=== PATIENT | male | born 1960 ===

== ENCOUNTER 2020-06-22 11:56 | Outpatient (REF) | payer MEDICARE, MEDICAID, SELFPAY | END 2020-06-22 11:57 | disposition home or self-care (01) | LOC: HO.LNP 11:56 | PROVIDERS: Visit Provider Hospitalist | DX: M79.10 Myalgia, unspecified site (principal); Z20.822 Contact with and (suspected) exposure to COVID-19 | CPT/HCPCS: U0003; U0005 ==

== ENCOUNTER 2020-12-11 06:44 | Outpatient (REF) | payer MEDICARE, MEDICAID, SELFPAY ==
[2020-12-11 07:33] LABS: Hematocrit 46.3 % (42-52); Hemoglobin 15.9 g/dl (14.0-18.0); Mean Corpuscular HGB Conc 34.3 g/dl (31.0-36.0); Mean Corpuscular Hemoglobin 30.4 pg (27.0-33.0); Mean Corpuscular Volume 88.5 fL (80-98); Platelet Count 217 X10*3/uL (160-400); Red Blood Count 5.23 X10*6/uL (4.60-5.80); Red Cell Distribution Width 12.4 % (11.0-16.0); White Blood Count 6.5 X10*3/uL (4.8-10.8)
[2020-12-11 07:34] LABS: Glucose Urine UA NEG (NEG); Leukocyte Esterase Urine NEG (NEG); Nitrite Urine NEG (NEG); PH 6.5 (5.0-8.0); Specific Gravity - Urine 1.015 (1.005-1.025); Urine Blood NEG (NEG); Urine Ketones NEG (NEG); Urine Protein NEG (NEG-TRACE)
[2020-12-11 07:35] LABS: Appearance Urine CLEAR; Color Urine YELLOW
[2020-12-11 07:50] LABS: Alanine Aminotransferase 18 U/L (0-40); Albumin Level 4.5 g/dL (3.5-5.0); Alkaline Phosphatase 89 U/L (39-117); Anion Gap 12 (12-20); Aspartate Amino Transferase 19 U/L (5-37); Bilirubin Direct 0.3 mg/dL (0.0-0.5); Bilirubin Total 0.7 mg/dL (0.0-1.0); Blood Urea Nitrogen 14 mg/dL (9-16); Calcium 9.8 mg/dL (8.4-10.2); Carbon Dioxide 25 mmol/L (22-29); Chloride 108 mmol/L (96-108); Cholesterol 188 mg/dL; Estimated Glomerular Filt Rate > 60; Glucose Random 104 mg/dL (60-115); HDL Cholesterol 68 mg/dL; LDL Cholesterol Calculated 105 mg/dl; Potassium 4.3 mmol/L (3.3-5.1); Sodium 141 mmol/L (135-145); Total Protein 7.5 g/dL (6.5-8.0); Triglycerides 75 mg/dL
[2020-12-11 08:10] LABS: Prostate Specific Antigen Scr 1.81 ng/mL (<0.05-4.0)
== END 2020-12-11 06:45 | disposition home or self-care (01) ==
LOC: HO.LAB 06:44
PROVIDERS: PCP Internal Medicine; Visit Provider Internal Medicine
DX: Z12.5 Encounter for screening for malignant neoplasm of prostate (principal); N40.0 Benign prostatic hyperplasia without lower urinary tract symptoms
CPT/HCPCS: 36415; 80048; 80061; 80076; 81003; 84153; 84443; 85027

== ENCOUNTER → 2021-10-02 14:38 | Outpatient (BNVA) | payer MEDICARE, MEDICAID, SELFPAY | PROVIDERS: PCP Internal Medicine; Visit Provider Internal Medicine | DX: G47.33 Obstructive sleep apnea (adult) (pediatric) (principal); F41.1 Generalized anxiety disorder; Z79.899 Other long term (current) drug therapy; Z91.19 Patient's noncompliance with other medical treatment and regimen | CPT/HCPCS: 99212 ==

== ENCOUNTER 2021-10-15 07:40 | Outpatient (REF) | payer MEDICARE, MEDICAID, SELFPAY ==
[2021-10-15 08:20] LABS: Hematocrit 40.5 % (42.0-52.0); Hemoglobin 13.9 g/dl (14.0-18.0); Mean Corpuscular HGB Conc 34.3 g/dl (31.0-36.0); Mean Corpuscular Hemoglobin 30.4 pg (27.0-33.0); Mean Corpuscular Volume 88.6 fL (80.0-98.0); Mean Platelet Volume 9.9 fL (9.4-12.4); Platelet Count 202 X10*3/uL (160-400); Red Blood Count 4.57 X10*6/uL (4.60-5.80); Red Cell Distribution Width 12.5 % (11.0-16.0); White Blood Count 5.8 X10*3/uL (4.8-10.8)
[2021-10-15 08:32] LABS: Appearance Urine CLEAR; Color Urine YELLOW; Glucose Urine UA NEG (NEG); Leukocyte Esterase Urine NEG (NEG); Nitrite Urine NEG (NEG); Urine Blood NEG (NEG); Urine Ketones NEG (NEG); Urine Protein NEG (NEG-TRACE)
[2021-10-15 08:47] LABS: Alanine Aminotransferase 19 U/L (0-40); Albumin Level 4.3 g/dL (3.5-5.0); Alkaline Phosphatase 86 U/L (39-117); Anion Gap 13 (12-20); Aspartate Amino Transferase 19 U/L (5-37); Bilirubin Direct 0.3 mg/dL (0.0-0.5); Bilirubin Total 0.9 mg/dL (0.0-1.0); Blood Urea Nitrogen 16 mg/dL (9-16); Carbon Dioxide 25 mmol/L (22-29); Chloride 106 mmol/L (96-108); Cholesterol 194 mg/dL; Estimated Glomerular Filt Rate > 60; Glucose Random 101 mg/dL (60-115); HDL Cholesterol 57 mg/dL; LDL Cholesterol Calculated 127 mg/dl; Potassium 4.2 mmol/L (3.3-5.1); Sodium 140 mmol/L (135-145); Total Protein 7.1 g/dL (6.5-8.0); Triglycerides 51 mg/dL
[2021-10-15 08:49] LABS: Thyroid Stimulating Hormone 0.63 uIU/mL (0.32-4.0)
== END 2021-10-15 07:41 | disposition home or self-care (01) ==
LOC: HO.LAB 07:40
PROVIDERS: PCP Internal Medicine; Visit Provider Internal Medicine
DX: E78.00 Pure hypercholesterolemia, unspecified (principal); I10 Essential (primary) hypertension
CPT/HCPCS: 36415; 80048; 80061; 80076; 81003; 84443; 85027

== ENCOUNTER → 2021-12-04 15:22 | Outpatient (BNVA) | payer MEDICARE, MEDICAID, SELFPAY | PROVIDERS: PCP Internal Medicine; Visit Provider Internal Medicine | DX: G47.33 Obstructive sleep apnea (adult) (pediatric) (principal); J30.9 Allergic rhinitis, unspecified; Z99.89 Dependence on other enabling machines and devices | CPT/HCPCS: 99212 ==

== ENCOUNTER 2022-03-10 10:19 | Emergency (ER) | payer MEDICARE, MEDICAID, SELFPAY ==
[2022-03-10 10:23] VITALS: BP 177/93; PULSE 110; RESP 19; TEMP 36.6; O2SAT 93; BMI 27.3
--- NOTE | 2022-03-10 10:53 | PC.NURSE ---
bladder distended with 783ml via bladder scanner
[2022-03-10] MEDS: Lidocaine HCl 2 % Urojet 10 ML JEL.PF.APP TOPICAL (11:12)
--- NOTE | 2022-03-10 11:13 | PC.NURSE ---
18 norwood placed , pt tolerated well and draining clear urine
[2022-03-10 11:43] LABS: MANUAL DIFF FLAG NO
[2022-03-10 11:44] LABS: Basophils Percent Auto 0.6 % (0-2); Eosinophils Percent Auto 0.3 % (0-4); Hematocrit 42.5 % (42.0-52.0); Hemoglobin 14.4 g/dl (14.0-18.0); Imm Gran Abs Auto 0.03 X10*3/uL (0.00-0.03); Imm Gran Pct Auto 0.4 % (0.0-0.4); Lymphocytes Absolute Auto 1.1 X10*3/uL (1.2-4.9); Lymphocytes Percent Auto 15.6 % (20-40); Mean Corpuscular HGB Conc 33.9 g/dl (31.0-36.0); Mean Corpuscular Volume 88.5 fL (80.0-98.0); Mean Platelet Volume 9.2 fL (9.4-12.4); Monocytes Absolute Auto 0.7 X10*3/uL (0.1-1.2); Monocytes Percent Auto 9.4 % (2-11); Neutrophils Absolute Auto 5.1 x10*3/uL (2.0-8.3); Neutrophils Percent Auto 73.7 % (45-73); Platelet Count 207 X10*3/uL (160-400); Red Cell Distribution Width 12.7 % (11.0-16.0); White Blood Count 6.9 X10*3/uL (4.8-10.8)
[2022-03-10 11:55] LABS: Appearance Urine Clear; Color Urine Yellow; Glucose Urine UA Negative (Negative); Leukocyte Esterase Urine Negative (Negative); Nitrite Urine Negative (Negative); Specific Gravity - Urine 1.015 (1.005-1.025); UMIC TRIGGER UACC YES; Urine Blood Moderate (2+) (Negative); Urine Ketones Negative (Negative); Urine Protein Negative (Neg-Trace)
[2022-03-10 12:01] LABS: Bacteria Urine None Seen (None Seen); Hyaline Casts Urine 0-2 /LPF (0-2); RBC Urine >20 /HPF (0-2); Squamous Epithelial Cell Urine 0-2 /HPF (0-2); WBC Urine 0-5 /HPF (0-5)
[2022-03-10 12:03] LABS: Alanine Aminotransferase 17 U/L (0-40); Albumin Level 4.4 g/dL (3.5-5.0); Alkaline Phosphatase 82 U/L (39-117); Anion Gap 13 (12-20); Aspartate Amino Transferase 19 U/L (5-37); Bilirubin Total 0.5 mg/dL (0.0-1.0); Blood Urea Nitrogen 13 mg/dL (9-16); Calcium 9.5 mg/dL (8.4-10.2); Carbon Dioxide 24 mmol/L (22-29); Chloride 107 mmol/L (96-108); Creatinine Clr Calc Pharmacy 84.4; Estimated Glomerular Filt Rate > 60; Glucose Random 112 mg/dL (60-115); Potassium 4.2 mmol/L (3.3-5.1); Sodium 140 mmol/L (135-145); Total Protein 7.2 g/dL (6.5-8.0)
--- NOTE | 2022-03-10 12:11 | ED.MALEGU ---
HPI - Male Genitourinary General Chief complaint: Urogenital-Male Stated complaint: Trouble urinating Time Seen by Provider: 03/10/22 11:11 Source: patient Mode of arrival: ambulatory Limitations: no limitations History of Present Illness HPI Narrative: 62 yod male with pmh oF BPH, CAD, SHAHRIAR, osteoarthrits, presents to the ED for urinary retention. patient states couple of days ago he had some dribbling in his Urine and than since last night he was not able to urinate. patient states history of BPh, but has never had Urinary retention. patient deneis any flank pain, nausea and vomitting. Patient states due to inability to urinate he had suprapubic pain. patient denies any history of STD Related Data Previous Rx's Medication Instructions Recorded trazodone 100 mg tablet 100 mg PO BEDTIME PRN for insomnia 12/08/20 #90 tabs citalopram 20 mg tablet 20 mg PO DAILY #90 tabs 11/04/21 diclofenac sodium 50 mg 50 mg PO BID #60 tabs 11/04/21 tablet,delayed release enalapril maleate 10 mg tablet 10 mg PO DAILY #90 tabs 11/04/21 tamsulosin 0.4 mg capsule 0.4 mg PO BEDTIME #90 caps 11/04/21 rosuvastatin 10 mg tablet 10 mg PO DAILY #90 tabs 12/15/21 fluticasone propionate 50 1 spray intranasal DAILY #16 mL 12/26/21 mcg/actuation nasal spray,suspension Allergies Allergy/AdvReac Type Severity Reaction Status Date / Time No Known Allergies Allergy Verified 12/26/21 09:22 Review of Systems Review of Systems: Urinary retention Yes all other systems are reviewed and are negative [facility] Past Medical History Medical History Allergic rhinitis Coronary artery disease due to lipid rich plaque Essential hypertension Generalized anxiety disorder Hypercholesterolemia SHAHRIAR on CPAP Osteoarthritis of right hip Surgical History History of hemorrhoidectomy History of repair of rotator cuff Family History Family History Father No problems noted. Mother No problems noted. Sister No problems noted. Sister No problems noted. Social History Social History Housing: Apartment Alcohol intake: never Patient Tobacco Use Status: Former Tobacco user (30 years ago) e-Cigarette/Vaping Use: Never Used Second Hand Smoke Exposure: No Advance Directives: No Advance Directives Information Provided: No service: No Current occupational status: disabled Cognitive needs: No Hearing needs: No Vision needs: Yes (Glasses) Physical Exam Vital Signs: Vital Signs: Last Vital Signs Temp 98 F 03/10/22 10:23 Pulse 110 H 03/10/22 10:23 Resp 19 03/10/22 10:23 BP 177/93 H 03/10/22 10:23 Pulse Ox 93 03/10/22 10:23 O2 Del Method 03/10/22 10:23 BMI result Body Mass Index 27.3 Const: General: acute distress (due to urinary retention) Orientation/consciousness: oriented to place, oriented to time and patient oriented x3 HEENT: Head: Yes normal to inspection, Yes No palpable skull fracture present, Yes normocephalic, Yes atraumatic and No abrasion Eyes: General: appearance normal, both eyes and all related structures Neck: Neck: Yes normal visual inspection, Yes full ROM, Yes no lymphadenopathy, Yes no meningeal signs, Yes trachea midline, Yes supple, No anterior neck swelling and No tender Chest: Chest palpation & inspection: normal inspection of the chest and normal palpation of entire chest wall Resp: Effort & Inspection: normal respiratory effort and able to speak in complete sentences Auscultation: clear to auscultation bilaterally Cardio: Jugular venous distension: no JVD Heart sounds: S1 normal heart sound present and S2 normal heart sound present GI: Inspection: Yes normal to inspection and No abdominal wall ecchymosis Palpation (GI): Soft to palpation, not firm, Tenderness to palpation present (GI) suprapubicly, no guarding and not rigid : General: No CVA tenderness and Yes no CVA tenderness Back/Spine/Pelvis: Back: no CVA tenderness, No CVA tenderness and No back tenderness Skin: General skin exam: no rashes or lesions noted and elasticity normal Neuro: General: oriented to place, oriented to time, patient oriented x3, gait normal, tone normal and no meningeal signs Cranial nerves: Yes CN's II-XII intact bilaterally Extrem: General: Yes normal to inspection and Yes full ROM Psych: Appearance: grossly normal, well kempt and not disheveled Course Course Course Narrative: Bladder scan shows [address] Wagner catheter with Uro jet. Patient drained 2000 mL of urine. Will send urine sample and labs to make sure there is no kidney function injury or infection Reevaluation(s) Reevaluation #1: Labs are normal. UA shows blood which is expected from trying to place Wagner. Patient denies any flank pain or nausea vomiting or abdominal pain. Not Suspecting kidney stones. Patient feels better after Wagner placement. Urine is clear. Vital signs normalized on portable monitor. patient no longer tachy or hypertensive. patient feels relieved. 02 sat before dsicahrged is 95. Repeat Bp 150 systlolic and HR 79. MDM - Male Genitourinary MDM Narrative Medical decision making narrative: Urinary retention Lab Data Result diagrams: 03/10/22 11:37 03/10/22 11:37 Labs: Lab Results 03/10/22 03/10/22 03/10/22 Range/Units 11:34 11:37 11:37 WBC 6.9 (4.8-10.8) X10*3/uL RBC 4.80 (4.60-5.80) X10*6/uL Hgb 14.4 (14.0-18.0) g/dl Hct 42.5 (42.0-52.0) % MCV 88.5 (80.0-98.0) fL MCH 30.0 (27.0-33.0) pg MCHC 33.9 (31.0-36.0) g/dl RDW 12.7 (11.0-16.0) % Plt Count 207 (160-400) X10*3/uL MPV 9.2 L (9.4-12.4) fL Immature Gran % (Auto) 0.4 (0.0-0.4) % Neut % (Auto) 73.7 H (45-73) % Lymph % (Auto) 15.6 L (20-40) % [place] % (Auto) 9.4 (2-11) % Eos % (Auto) 0.3 (0-4) % Baso % (Auto) 0.6 (0-2) % Lymph # (Auto) 1.1 L (1.2-4.9) X10*3/uL [place] # (Auto) 0.7 (0.1-1.2) X10*3/uL Eos # (Auto) 0.0 (0.0-0.4) X10*3/uL Baso # (Auto) 0.0 (0.0-0.2) X10*3/uL Abs Immat Gran (auto) 0.03 (0.00-0.03) X10*3/uL Absolute Neuts (auto) 5.1 (2.0-8.3) x10*3/uL Absolute Nucleated RBC 0.000 (0.0-0.012) X10*3/uL Nucleated RBC % (auto) 0.0 (0.0-0.2) /100WBC Sodium 140 (135-145) mmol/L Potassium 4.2 (3.3-5.1) mmol/L Chloride 107 (96-108) mmol/L Carbon Dioxide 24 (22-29) mmol/L Anion Gap 13 (12-20) BUN 13 (9-16) mg/dL Creatinine 0.90 (0.5-1.4) mg/dL Estim Creat Clear Calc 84.4 Estimated GFR > 60 Random Glucose 112 (60-115) mg/dL Calcium 9.5 (8.4-10.2) mg/dL Total Bilirubin 0.5 (0.0-1.0) mg/dL AST 19 (5-37) U/L ALT 17 (0-40) U/L Alkaline Phosphatase 82 (39-117) U/L Total Protein 7.2 (6.5-8.0) g/dL Albumin 4.4 (3.5-5.0) g/dL Urine Color Yellow Urine Appearance Clear Urine pH 6.0 (5.0-9.0) Ur Specific [place] 1.015 (1.005-1.025) Urine Protein Negative (Neg-Trace) mg/dL Urine Glucose (UA) Negative (Negative) mg/dL Urine Ketones Negative (Negative) mg/dL Urine Blood Moderate (2+) H (Negative) Urine Nitrite Negative (Negative) Ur Leukocyte Esterase Negative (Negative) Urine RBC >20 H (0-2) /HPF Urine WBC 0-5 (0-5) /HPF Ur Squamous Epith Cells 0-2 (0-2) /HPF Urine Bacteria None Seen (None Seen) Hyaline Casts 0-2 (0-2) /LPF Discharge Plan Discharge Clinical Impression: Acute urinary retention Patient Disposition: Home, Self-Care Instructions: Urinary Retention in Men (ED), Wagner Catheter Placement and Care (ED) Additional Instructions: The Wagner will have to stay in place. Your labs came back normal. You will need follow-up with your urologist. Return to the ED for bloody urine, abdominal pain, nausea, vomiting, flank pain, fever, chills, or any other concerning symptoms. Prescriptions: No Action trazodone 100 mg tablet 100 mg PO BEDTIME PRN (Reason: for insomnia) Qty: 90 1RF citalopram 20 mg tablet 20 mg PO DAILY Qty: 90 1RF diclofenac sodium 50 mg tablet,delayed release (DR/EC) 50 mg PO BID Qty: 60 0RF enalapril maleate 10 mg tablet 10 mg PO DAILY Qty: 90 1RF tamsulosin 0.4 mg capsule 0.4 mg PO BEDTIME Qty: 90 1RF rosuvastatin 10 mg tablet 10 mg PO DAILY Qty: 90 0RF fluticasone propionate 50 mcg/actuation spray,suspension 1 spray intranasal DAILY Qty: 16 1RF Referrals: [facility] [Provider Group] (Urinary retention) Stand Alone Forms: Work/School Release Interventions: ED Discharge Assessment Last Done: 03/10/22 13:42 Print Language: Greek
== END 2022-03-10 13:44 | disposition home or self-care (01) ==
PROVIDERS: Physician Assistant; Emergency Provider Student in an Organized Health Care Education/Training Program; PCP Internal Medicine
DX: R33.9 Retention of urine, unspecified (principal); G47.33 Obstructive sleep apnea (adult) (pediatric); Z79.899 Other long term (current) drug therapy
CPT/HCPCS: 36415; 51798; 80053; 81001; 85025; 99284

== ENCOUNTER → 2022-06-24 15:09 | Outpatient (BNVA) | payer MEDICARE, MEDICAID, SELFPAY | PROVIDERS: PCP Internal Medicine; Visit Provider Internal Medicine | DX: G47.33 Obstructive sleep apnea (adult) (pediatric) (principal); J30.9 Allergic rhinitis, unspecified; Z99.89 Dependence on other enabling machines and devices | CPT/HCPCS: 99212 ==

== ENCOUNTER → 2022-10-29 14:47 | Outpatient (BNVA) | payer OTHER, MEDICARE, SELFPAY | PROVIDERS: PCP Internal Medicine; Visit Provider Internal Medicine ==

== ENCOUNTER 2023-02-05 14:04 | Outpatient (AMB) | payer MEDICARE, MEDICAID, SELFPAY ==
--- NOTE | 2023-02-05 14:08 | MHC.PC.OV ---
Vital Signs 02/05/23 14:10 Height 5 ft 8 in Weight 192 lb 2 oz BMI 29.2 BP 132/84 Blood Pressure Location Lt brachial Position Sitting Pulse 82 Pulse Source Pulse Oximeter Pulse Oximetry (%) 95 Oxygen Delivery Method Room Air Intake Visit Reasons: SOB for 1 month Intake Note: Patient is here today for SOB and dizziness for the past 1 month Auriculotherapist Required: No Linux System Administrator: Not Required per policy Accompanied by: Self / Same As Patient Allergies No Known Allergies Allergy (Verified 02/05/23 14:09) Tobacco use date assessed: 02/05/23 Dental Screening Dental Screen Date: 02/05/23 Did you have a dental visit in the last 12 months?: No Did you have a dental problem in the last 6 months where you did not have access to dental care?: No Was dental information given to patient?: No HPI SOB for 1 month HPI Details 63-year-old male presents to the office for a sick visit. Patient is reporting exertional shortness of breath for the past month. No wheezing. Symptoms are worse when he climbs stairs. He is able to walk 1 mi with no difficulty. No nausea or vomiting. [facility]LY [facility] Medical History Allergic rhinitis SHAHRIAR on CPAP Generalized anxiety disorder Hypercholesterolemia Essential hypertension Osteoarthritis of right hip Coronary artery disease due to lipid rich plaque Surgical History History of prostate surgery History of repair of rotator cuff History of hemorrhoidectomy Family History Father No problems noted. Mother No problems noted. Sister No problems noted. Sister No problems noted. Social History Housing: Apartment Alcohol intake: never Patient Tobacco Use Status: Former Tobacco user (30 years ago) e-Cigarette/Vaping Use: Never Used Second Hand Smoke Exposure: No service: No Current occupational status: disabled Cognitive needs: No Hearing needs: No Vision needs: Yes (Glasses) Questionnaire Thrive Questionnaire Date Thrive assessed: 06/17/22 SEBASTIAN-7 AMB Questionnaire SEBASTIAN-7 Date SEBASTIAN - 7 assessed: 02/07/23 Source: Developed by Drs. Antonio Ott, Sravanthi Kowalski, Jeramy Holland and colleagues, with an educational keara from [employer]. Physical exam (Primary Care) Vital Signs: Last Vital Signs Pulse 82 02/05/23 14:10 BP 132/84 02/05/23 14:10 Pulse Ox 95 02/05/23 14:10 Oxygen Delivery Method Room Air 02/05/23 14:10 BMI result Body Mass Index 29.2 Tobacco/Smoking Status: Tobacco use Status Tobacco use date assessed 02/05/23 02/05/23 14:19 Patient Tobacco Use Status Former Tobacco user (30 02/05/23 14:19 years ago) e-Cigarette/Vaping Use Never Used 02/05/23 14:19 Thrive Assessment: Date of Thrive Assessment Date Thrive assessed 06/17/22 02/05/23 14:19 Const General: cooperative and healthy appearing Nutritional Appearance: well nourished Orientation/consciousness: patient oriented x3 Limitations: no limitations HENMT Head: Yes normal to inspection Eyes General: appearance normal, both eyes and all related structures Neck Neck: Yes normal visual inspection Chest Chest palpation & inspection: normal palpation of entire chest wall Resp Effort & Inspection: normal respiratory effort Neuro General: patient oriented x3 Office Procedures EKG Details: Normal sinus rhythm. [id number], Complete Assessment and Plan Assessment & Plan (1) Shortness of breath: Code(s): R06.02 - Shortness of breath Plan: EKG was within normal limits. Chest x-ray has been ordered. Prednisone has been ordered for 3 days. A stress test has been ordered. Orders: Orders AMB EKG-In Office 02/05/23 R07.9 - Chest pain, unspecified XR chest 2V 02/05/23 R05.9 - Cough, unspecified Coding Level of Care Code Est Pt Level 4 (02554) Diagnoses Shortness of breath R06.02 CPT Codes EKG - CPT: 74093-[id number], Complete ([id number])
[2023-02-05 14:10] VITALS: BP 132/84; PULSE 82; O2SAT 95; BMI 29.2
== END 2023-02-05 14:57 | disposition home or self-care (01) ==
PROVIDERS: PCP Internal Medicine; Visit Provider Internal Medicine
DX: R06.02 Shortness of breath (principal)
CPT/HCPCS: 93000; 99214

== ENCOUNTER 2023-02-05 15:07 | Outpatient (REF) | payer MEDICARE, MEDICAID, SELFPAY ==
--- NOTE | ~2023-02-05 | XR_ITS ---
EXAMINATION: XR CHEST 2 VIEWS CLINICAL INFORMATION: Cough. COMPARISON: Radiographs dated 12/08/2014. TECHNIQUE: Frontal and lateral views of the chest were obtained. FINDINGS: The heart, great vessels, pulmonary vasculature and mediastinum are normal. The lungs show no focal infiltrate, effusion or pneumothorax. There is no acute osseous abnormality. XR/XR chest 2V IMPRESSION: No active cardiopulmonary disease.
== END 2023-02-05 15:08 | disposition home or self-care (01) ==
LOC: HO.XRAY 15:07
PROVIDERS: PCP Internal Medicine; Visit Provider Internal Medicine
DX: R05.9 Cough, unspecified (principal)
CPT/HCPCS: 71046

== ENCOUNTER → 2023-02-12 07:45 | Outpatient (REF) | payer MEDICARE, MEDICAID, SELFPAY | LOC: HO.CARD 07:45 | PROVIDERS: PCP Internal Medicine; Visit Provider Internal Medicine | DX: R06.02 Shortness of breath (principal) | CPT/HCPCS: 93017 ==

== ENCOUNTER → 2023-02-12 07:47 | Outpatient (BNV) | payer MEDICARE, MEDICAID, SELFPAY | PROVIDERS: PCP Internal Medicine; Visit Provider Nurse Practitioner Family | DX: R06.02 Shortness of breath (principal) | CPT/HCPCS: 93016; 93018 ==

== ENCOUNTER 2023-02-19 08:56 | Outpatient (AMB) | payer MEDICARE, MEDICAID, SELFPAY ==
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
[2023-02-19 09:02] VITALS: BP 130/82; PULSE 65; O2SAT 97; BMI 29.5
== END 2023-02-19 10:29 | disposition home or self-care (01) ==
PROVIDERS: PCP Internal Medicine; Visit Provider Internal Medicine
DX: R06.02 Shortness of breath (principal); Z23 Encounter for immunization
CPT/HCPCS: 90471; 90686; 99213

== ENCOUNTER → 2023-04-07 07:51 | Outpatient (REF) | payer MEDICARE, MEDICAID, SELFPAY ==
--- NOTE | ~2023-04-07 | NM_ITS ---
Lexiscan Myocardial perfusion study Indication: Shortness of breath, abnormal stress test Technique: The patient was brought in for a Lexiscan perfusion study on 04/07/2023 and was injected 0.4 mg of Lexiscan intravenously. Within a minute of this injection 30 mCi of sestamibi was given intravenously. Images were obtained using the SPECT gamma camera interlaced with the gating device. Images were obtained in supine position. Resting perfusion study was performed on 04/09/2023. Patient was administered 30 mCi of sestamibi intravenously at rest. Images were then obtained in supine position. Images were processed with the software and compared side to side in short axis, horizontal long axis and vertical long axis views. Total DLP 85mGy-cm. Findings: Raw acquisition reviewed. The stress perfusion study showed mildly diminished tracer uptake in the basal to mid inferior wall. With CT attenuation correction, there is significant improvement suggestive of diaphragmatic attenuation artifact. The gated study shows normal LV systolic function with calculated LVEF of 69%. LV cavity is normal in size. The gated study shows normal wall thickening and contraction of segments. Resting study shows diminished tracer uptake along the inferior wall. However, there is improvement with CT attenuation correction suggestive of diaphragmatic attenuation artifact. Gating at rest reveals normal wall motion with ejection fraction at 68%. The findings are consistent with no clear reversible or fixed perfusion defects. NM/NM adan perf SPECT rest & str Impression: 1. Myocardial perfusion imaging study shows normal myocardial perfusion. 2. Gated LVEF is 69% during stress and 68% during rest. 3. Transient ischemic dilatation not present. EKG component of the test reported separately.
--- NOTE | 2023-04-07 07:53 | CA_ITS ---
Acquisition Time: 2023-04-07 08:08:28 Total Exercise Time: 00:02:00 Test Indications: Dyspnea Medications: SEE EMAR Protocol: LEXISCAN Max HR: 114 BPM 71% of Pred: 159 BPM Max BP: 154/072 mmHG Max Work Load: 1.6 METS Pharmacological stress test while walking slowly on treadmill with Lexisacn injection, with mild SOB, no chest discofmort, without arrhythmias, with normotensive response to injection, with nondiagnoisitic EKG. Aminophylline 75mg IVP given to reverse Lexiscan. Nuclear images pending. Test reviewed with Dr. Steen Referred By: Deng Roberts Overread By: Esthela Rice
== END ==
LOC: HO.CARD 07:51
PROVIDERS: PCP Internal Medicine; Visit Provider Internal Medicine
DX: R06.02 Shortness of breath (principal)
CPT/HCPCS: 78452; 93017; A9500; J0280; J2785

== ENCOUNTER → 2023-04-07 07:53 | Outpatient (BNV) | payer MEDICARE, MEDICAID, SELFPAY | PROVIDERS: PCP Internal Medicine; Visit Provider Nurse Practitioner | DX: R06.02 Shortness of breath (principal); R94.39 Abnormal result of other cardiovascular function study | CPT/HCPCS: 78452; 93016; 93018 ==

== ENCOUNTER 2023-04-23 14:54 | Outpatient (AMB) | payer OTHER, SELFPAY ==
[2023-04-23 15:02] VITALS: BP 110/70; PULSE 71; O2SAT 97; BMI 29.8
--- NOTE | 2023-04-23 15:02 | MHC.OFFVIS ---
Intake Vital Signs 04/23/23 15:02 Height 5 ft 8 in Weight 196 lb BMI 29.8 BP 110/70 Blood Pressure Location Lt brachial Position Sitting Pulse 71 Pulse Source Pulse Oximeter Pulse Oximetry (%) 97 Oxygen Delivery Method Room Air Intake Visit Reasons: COPD Intake Note: pt is here for follow up and states he is feeling some coughing, wheezing, shortness of breath, sometimes he is just sitting down but he feels like he cannot get a good breath, and he is looking for air. 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 He has chronic allergic rhinitis which remains well controlled with the use of fluticasone propionate spray on a daily basis. Previously he has no history of bronchial asthma. He has been nonsmoker. He is using CPAP very regularly, without any problem. Sometimes if he is not using CPAP he would wake up with a gasping like feeling. During the daytime he is getting short of breath more frequently than before. He feels that he cannot take a deeper breath. [facility] Medical History Allergic rhinitis SHAHRIAR on CPAP Generalized anxiety disorder Hypercholesterolemia Essential hypertension Osteoarthritis of right hip Coronary artery disease due to lipid rich plaque Surgical History History of prostate surgery History of repair of rotator cuff History of hemorrhoidectomy Family History Father No problems noted. Mother No problems noted. Sister No problems noted. Sister No problems noted. Social History Housing: Apartment Alcohol intake: never Patient Tobacco Use Status: Former Tobacco user (30 years ago) e-Cigarette/Vaping Use: Never Used Second Hand Smoke Exposure: No service: No Current occupational status: disabled Cognitive needs: No Hearing needs: No Vision needs: Yes (Glasses) Review of Systems Const All systems reviewed & are unremarkable except as noted in HPI and below Eyes Reports no additional complaints ENT Reports nasal congestion (Only mild once in a while) Card Denies chest pain, Denies irregular heart rhythm, Denies leg edema and Denies dyspnea Resp Denies cough, Denies dyspnea and Denies wheezing GI Reports dyspepsia (Chronic nonspecific) and Reports heartburn Reports no additional complaints Musc Reports myalgias (Chronic due to arthritis) Skin/Breast Reports system reviewed and no additional complaints, except as documented Neuro Reports no additional complaints Psych Reports anxiety (Controlled with medicine) Aller/Immun Denies wheezing Physical Exam Vital Signs: Last Vital Signs Pulse 71 04/23/23 15:02 BP 110/70 04/23/23 15:02 Pulse Ox 97 04/23/23 15:02 Oxygen Delivery Method Room Air 04/23/23 15:02 BMI result Body Mass Index 29.8 Const General: healthy appearing, comfortable, no acute distress, alert and awake Orientation/consciousness: patient oriented x3 HEENT Head: Yes normal to inspection General nose exam: No nasal polyps present, No nasal discharge present and Other nasal findings present (MILD NASAL CONGESTION) Face and sinus: Yes sinuses nontender Mouth: oropharynx normal Teeth and gingiva: other (HE HAS PROMINENT RETROGANTHIA OF THE LOWER JAW) Throat: Yes posterior oropharynx normal Eyes General: appearance normal, both eyes and all related structures Neck Neck: Yes normal visual inspection, Yes no lymphadenopathy, Yes trachea midline and Yes no JVD Thyroid: Thyroid normal Chest Chest palpation & inspection: normal inspection of the chest, normal palpation of entire chest wall and no tenderness Resp Effort & Inspection: normal respiratory effort Auscultation: clear to auscultation bilaterally, no crackles and no wheezes Cardio Palpation: normal PMI Rate: regular rate Rhythm: regular rhythm Heart sounds: no gallops and no murmurs Peripheral pulses: Peripheral pulses 2+ throughout GI Palpation (GI): Soft to palpation, nontender, No hepatosplenomegaly present and no masses Auscultation: normal bowel sounds Back/Spine/Pelvis Thoracic/Lumbar Spine: thoracic and lumbar spine normal to inspection Skin General skin exam: no rashes or lesions noted Neuro General: patient oriented x3 and no focal motor deficits Cranial nerves: Yes CN's II-XII intact bilaterally Extrem General: Yes normal to inspection, Yes no clubbing, cyanosis or edema and Yes no calf tenderness Psych Appearance: grossly normal and well kempt Speech and movement: Normal speech and movement present Results Reviewed Results Reviewed: Compliance report for the last 30 nights is reviewed. He has been using every night, 100% of the nights. Average use it per night 6 hours 20 minute. Pressure used mostly 13-14 cm, There is only minimal air leak. Residual AHI only 0.8 SPIROMETRY ; SPIROMETRY FINDINGS ARE PERFECTLY NORMAL THERE IS NO EVIDENCE OF ANY OBSTRUCTIVE AIRWAY DISORDER Assessment & Plan Assessment & Plan (1) Allergic rhinitis: Comment: HE HAS MILD CHRONIC ALLERGIC RHINITIS. WELL CONTROLLED WITH USE OF FLONASE 2 SPRAY IN EACH NOSTRIL DAILY. Code(s): J30.9 - Allergic rhinitis, unspecified Plan: CONTINUE USING FLONASE 2 SPRAY IN EACH NOSTRIL DAILY (2) SHAHRIAR on CPAP: Comment: KNOWN CASE OF SHAHRIAR AND HAS BEEN VERY COMPLIANT, PRESSURE 6- 16 CMs FULL FACE MASK . NO ISSUES WITH THE USE OF CPAP. Code(s): G47.33 - Obstructive sleep apnea (adult) (pediatric); Z99.89 - Dependence on other enabling machines and devices Plan: COMMENDED FOR EXCELLENT COMPLIANCE AND ADVISED TO CONTINUE USING THE CPAP EVERY NIGHT ADVISED TO CONTINUE USING REGULARLY . WILL RECHECK IN 6 MONTHS (3) Shortness of breath: Comment: HE DESCRIBES THE GETTING SHORT OF BREATH MORE EASILY. ALSO SOMETIMES IF HE HAS DIFFICULTY IN BREATHING. BUT DOES NOT HAVE ANY BOUTS OF COUGH OR WHEEZING Code(s): R06.02 - Shortness of breath Plan: SPIROMETRY HE IS ACTUALLY NORMAL. I SHOWED HIM THE RESULTS AND REASSURED HIM. HE CAN DO DEEP BREATHING EXERCISES ABOUT 10 TIMES MORNING AND EVENING. Coding Level of Care Code Est Pt Level 3 (90910) Diagnoses Allergic rhinitis J30.9 SHAHRIAR on CPAP G47.33; Z99.89 Shortness of breath R06.02
== END 2023-04-23 15:54 | disposition home or self-care (01) ==
PROVIDERS: PCP Internal Medicine; Visit Provider Internal Medicine
DX: J30.9 Allergic rhinitis, unspecified (principal); G47.33 Obstructive sleep apnea (adult) (pediatric); Z99.89 Dependence on other enabling machines and devices; R06.02 Shortness of breath
CPT/HCPCS: 99213

== ENCOUNTER → 2023-04-23 14:54 | Outpatient (BNVA) | payer OTHER, SELFPAY | PROVIDERS: PCP Internal Medicine; Visit Provider Internal Medicine | DX: J30.9 Allergic rhinitis, unspecified (principal); R06.02 Shortness of breath; G47.33 Obstructive sleep apnea (adult) (pediatric); Z99.89 Dependence on other enabling machines and devices | CPT/HCPCS: 99212 ==

== ENCOUNTER 2023-06-10 14:57 | Outpatient (AMB) | payer OTHER, SELFPAY ==
--- NOTE | 2023-06-10 14:59 | A.OFFPC_ITS ---
Vital Signs 06/10/23 15:01 Height 5 ft 8 in Weight 195 lb BMI 29.6 BP 108/62 Blood Pressure Location Lt brachial Position Sitting Pulse 75 Pulse Source Pulse Oximeter Pulse Oximetry (%) 97 Oxygen Delivery Method Room Air Intake Visit Reasons: Rheum Referral Intake Note: Patient is here today for Rheumatology referral for joint pain Metal Reed Tuner Required: No Merchandise Pickup/Receiving Associate: Not Required per policy Accompanied by: Self / Same As Patient Allergies No Known Allergies Allergy (Verified 06/11/23 05:45) Tobacco use date assessed: 06/10/23 Dental Screening Dental Screen Date: 06/10/23 Did you have a dental visit in the last 12 months?: No Did you have a dental problem in the last 6 months where you did not have access to dental care?: No Was dental information given to patient?: No HPI Rheum Referral HPI Details 63-year-old male presents to the office requesting an 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 Patient reports that his joint pains have gotten worse. His right hand for functionality has decreased. He has pain when he opens or breaker off something tight. Morning stiffness present. Similar symptoms in the neck [facility] Medical History Allergic rhinitis SHAHRIAR on CPAP Generalized anxiety disorder Hypercholesterolemia Essential hypertension Osteoarthritis of right hip Coronary artery disease due to lipid rich plaque Surgical History History of prostate surgery History of repair of rotator cuff History of hemorrhoidectomy Family History Father No problems noted. Mother No problems noted. Sister No problems noted. Sister No problems noted. Social History Housing: Apartment Alcohol intake: never Patient Tobacco Use Status: Former Tobacco user (30 years ago) e-Cigarette/Vaping Use: Never Used Second Hand Smoke Exposure: No service: No Current occupational status: disabled Cognitive needs: No Hearing needs: No Vision needs: Yes (Glasses) Questionnaire PHQ-9 Over the last 2 weeks, how often have you been bothered by any of the following problems? 1. Little interest or pleasure in doing things: nearly every day 2. Feeling down, depressed, or hopeless: several days 3. Trouble falling or staying asleep, or sleeping too much: more than half the days 4. Feeling tired or having little energy: several days 5. Poor appetite or overeating: not at all 6. Feeling bad about yourself - or that you are a failure or have let yourself or your family down: several days 7. Trouble concentrating on things, such as reading the newspaper or watching television: several days 8. Moving or speaking so slowly that other people could have noticed. Or the opposite - being so fidgety or restless that you have been moving around a lot more than usual: several days 9. Thoughts that you would be better off or of hurting yourself in some way: several days Total score: 11 Source: Developed by Drs. Antonio Ott, Sravanthi Kowalski, Jeramy Holland and colleagues, with an educational keara from [employer]. Thrive Questionnaire Date Thrive assessed: 06/10/23 I am a: Patient What is your living situation today?: I have a steady place to live Within the past 12 months, did the food you bought not last and you didn't have the money to get more?: Never true Within the past 12 months, did you worry whether your food would run out before you got money to buy more?: Never true Do you have trouble paying for medicines?: No Do you have trouble getting transportation to medical appointments?: No Do you have trouble paying your heating and electricity bill?: No Do you have trouble taking care of your child, family member or friend?: No Do you have trouble with day-to-day activities such as bathing, preparing meals, shopping, managing finances, etc.?: No Are you currently unemployed and looking for a job?: No Are you interested in more education?: No Currently or been in a relationship where the following occur: no concerns reported THRIVE Score: 0 AUDIT C Alcohol Use Questionnaire (AUDIT-C) 1. How often do you have a drink containing alcohol?: Never Total Score: 0 SEBASTIAN-7 AMB Questionnaire SEBASTIAN-7 Date SEBASTIAN - 7 assessed: 06/10/23 Feeling nervous, anxious, or on edge: 1 = Several days Not being able to stop or control worryin = Several days Worrying too much about different things: 1 = Several days Trouble relaxin = Several days Being so restless that it is hard to sit still: 2 = More than half the days Becoming easily annoyed or irritable: 2 = More than half the days Feeling afraid as if something awful might happen: 1 = Several days Total SEBASTIAN-7 score (0-4 normal; 5-9 mild; 10-14 moderate; 15-21 severe): 9 Source: Developed by Drs. Antonio Ott, Sravanthi Kowalski, Jeramy Holland and colleagues, with an educational keara from [employer]. Physical exam (Primary Care) Vital Signs: Last Vital Signs Pulse 75 06/10/23 15:01 BP 108/62 06/10/23 15:01 Pulse Ox 97 06/10/23 15:01 Oxygen Delivery Method Room Air 06/10/23 15:01 BMI result Body Mass Index 29.6 Tobacco/Smoking Status: Tobacco use Status Tobacco use date assessed 06/10/23 06/10/23 15:11 Patient Tobacco Use Status Former Tobacco user (06/10/23 15:00 years ago) e-Cigarette/Vaping Use Never Used 06/10/23 15:00 PHQ-9: PHQ-9 Score PHQ-9: Total score 11 06/10/23 15:11 Thrive Assessment: Date of Thrive Assessment Date Thrive assessed 06/10/23 06/10/23 15:00 Currently or been in a relationship where the following occur: no concerns reported Const General: cooperative and healthy appearing Nutritional Appearance: well nourished Orientation/consciousness: patient oriented x3 Limitations: no limitations HENMT Head: Yes normal to inspection Eyes General: appearance normal, both eyes and all related structures Neck Neck: Yes normal visual inspection Chest Chest palpation & inspection: normal palpation of entire chest wall Resp Effort & Inspection: normal respiratory effort Neuro General: patient oriented x3 Extrem Other: right hand: Tenderness over the metacarpals. Minimal swelling at the MCP joints. Assessment and Plan Assessment & Plan (1) Osteoarthritis, hand: Code(s): M19.049 - Primary osteoarthritis, unspecified hand (2) Osteoarthritis: Code(s): M19.90 - Unspecified osteoarthritis, unspecified site Plan: X-ray of the hands ordered. Blood work has been ordered. Meloxicam has been ordered till the rheumatology appointment. Orders: Orders XR hand RT min 3V 06/10/23 M19.049 - Primary osteoarthritis, unspecified hand C Reactive Protein 06/10/23 M19.90 - Unspecified osteoarthritis, unspecified site Complete Blood Count no Diff 06/10/23 M19.90 - Unspecified osteoarthritis, unspecified site XR hand LT min 3V 06/10/23 M19.049 - Primary osteoarthritis, unspecified hand Erythrocyte Sedimentation Rate 06/10/23 M1.90 - Unspecified osteoarthritis, unspecified site Basic Metabolic Panel 06/10/23 M19.90 - Unspecified osteoarthritis, unspecified site Liver Panel 06/10/23 M1.90 - Unspecified osteoarthritis, unspecified site Referrals Rheumatology Referral - Unspecified osteoarthritis, unspecified site Medications: Discontinued diclofenac sodium Discontinued Reason: Doctor's Order 50 mg PO BID 60 tabs 0RF Coding Level of Care Code Est Pt Level 4 (08421) Diagnoses Osteoarthritis, hand M19.049 Osteoarthritis
[2023-06-10 15:01] VITALS: BP 108/62; PULSE 75; O2SAT 97; BMI 29.6
== END 2023-06-10 15:33 | disposition home or self-care (01) ==
PROVIDERS: PCP Internal Medicine; Visit Provider Internal Medicine
DX: M19.049 Primary osteoarthritis, unspecified hand (principal); M19.90 Unspecified osteoarthritis, unspecified site
CPT/HCPCS: 99214

== ENCOUNTER 2023-06-11 07:54 | Outpatient (REF) | payer OTHER, SELFPAY ==
--- NOTE | ~2023-06-11 | XR_ITS ---
EXAMINATION: XR hand LT min 3V, XR hand RT min 3V CLINICAL INFORMATION: Reason for Exam M19.049 - Primary osteoarthritis, unspecified hand COMPARISON: None. TECHNIQUE: AP, lateral, and oblique views of the bilateral hands FINDINGS: * No acute fracture or dislocation. * Joint spaces are maintained without significant degenerative change. * No soft tissue abnormality. XR/XR hand RT min 3V IMPRESSION: No acute fracture or dislocation.
--- NOTE | ~2023-06-11 | XR_ITS ---
EXAMINATION: XR hand LT min 3V, XR hand RT min 3V CLINICAL INFORMATION: Reason for Exam M19.049 - Primary osteoarthritis, unspecified hand COMPARISON: None. TECHNIQUE: AP, lateral, and oblique views of the bilateral hands FINDINGS: * No acute fracture or dislocation. * Joint spaces are maintained without significant degenerative change. * No soft tissue abnormality. XR/XR hand LT min 3V IMPRESSION: No acute fracture or dislocation.
[2023-06-11 08:38] LABS: Hemoglobin 15.5 g/dl (14.0-18.0); Mean Corpuscular HGB Conc 34.4 g/dl (31.0-36.0); Mean Corpuscular Hemoglobin 29.8 pg (27.0-33.0); Mean Corpuscular Volume 86.5 fL (80.0-98.0); Mean Platelet Volume 9.8 fL (9.4-12.4); Platelet Count 239 X10*3/uL (160-400); Red Cell Distribution Width 12.4 % (11.0-16.0); White Blood Count 7.2 X10*3/uL (4.8-10.8)
[2023-06-11 09:21] LABS: Erythrocyte Sedimentation Rate 6 MM/HR (0-15)
[2023-06-11 09:34] LABS: Alanine Aminotransferase 21 U/L (0-40); Albumin Level 4.4 g/dL (3.5-5.0); Alkaline Phosphatase 103 U/L (39-117); Anion Gap 13 (12-20); Aspartate Amino Transferase 21 U/L (5-37); Bilirubin Direct 0.2 mg/dL (0.0-0.5); Bilirubin Total 0.5 mg/dL (0.0-1.0); Blood Urea Nitrogen 16 mg/dL (9-16); C Reactive Protein < 0.10 mg/dL (< or = 0.50); Calcium 9.8 mg/dL (8.4-10.2); Carbon Dioxide 27 mmol/L (22-29); Chloride 105 mmol/L (96-108); Estimated Glomerular Filt Rate > 60; Glucose Random 98 mg/dL (60-115); Potassium 4.1 mmol/L (3.3-5.1); Sodium 141 mmol/L (135-145); Total Protein 7.8 g/dL (6.5-8.0)
== END 2023-06-11 07:55 | disposition home or self-care (01) ==
LOC: HO.LAB 07:54
PROVIDERS: PCP Internal Medicine; Visit Provider Internal Medicine
DX: M19.049 Primary osteoarthritis, unspecified hand (principal); M19.90 Unspecified osteoarthritis, unspecified site
CPT/HCPCS: 36415; 73130; 80048; 80076; 85027; 85652; 86140

== ENCOUNTER 2023-07-07 09:31 | Outpatient (AMB) | payer OTHER, SELFPAY ==
--- NOTE | 2023-07-07 09:41 | A.OFFVIS_ITS ---
Intake Vital Signs 07/07/23 09:42 Height 5 ft 8 in Weight 194 lb 14.218 oz BMI 29.6 BP 116/70 Blood Pressure Location Rt brachial Position Sitting Temp 97.8 F Temp Source Skin Intake Visit Reasons: osteoarthritis Intake Note: New patient, internally referred, presents today for OA consult. 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 Rivera 63-year-old male here for 1st time for evaluation of joint pain. The patient describes that he has been having increasing joint pain with movement in his hands, knees lower back and ankles. The pain has been present for at least 2 years. He denies prolonged morning stiffness, joint redness, and warmth but some joints do swell. He says his right ankle hurts more than the left and does get swollen. He also reports pain to the dorsum of his right hand that is sometimes swollen. He says that Aleve helps his joint pains. He denies any family history of autoimmune disease. The patient talks a lot about his depression and is seeing a therapist. [facility] Medical History (Updated 07/12/23 @ 16:34 by Triny Hobbs [facility]) Pain in joint involving multiple sites Bilateral hand swelling Allergic rhinitis SHAHRIAR on CPAP Generalized anxiety disorder Hypercholesterolemia Essential hypertension Osteoarthritis of right hip Coronary artery disease due to lipid rich plaque Surgical History History of prostate surgery History of repair of rotator cuff History of hemorrhoidectomy Family History (Updated 07/07/23 @ 09:47 by ARNULFO Alberto) Father No problems noted. Mother No problems noted. Sister Anemia Arthritis Sister Arthritis Social History (Updated 07/07/23 @ 09:48 by ANRULFO Alberto) Household Members: Spouse Housing: Apartment Alcohol intake: former Year quit: 20y Patient Tobacco Use Status: Former Tobacco user (30 years ago) e-Cigarette/Vaping Use: Never Used Second Hand Smoke Exposure: No service: No Current occupational status: disabled Cognitive needs: No Hearing needs: No Vision needs: Yes (Glasses) Physical Exam Vital Signs: Last Vital Signs Temp 97.8 F 07/07/23 09:42 BP 116/70 07/07/23 09:42 BMI result Body Mass Index 29.6 APPEARANCE: Patient in no acute distress, nourished, groomed EYES no redness, normal EARS:? External ear normal. NOSE/SINUS:? Airflow through both nares, no nasal discharge, no bleeding THROAT:? Oral mucosa moist, no ulcerations NECK:? No thyromegaly or masses, no adenopathy, trachea midline. HEART:? Regular rhythm, S1-S2 heard, no murmurs, rubs or gallops. LUNG:? Clear to percussion and auscultation EXTREMITIES:? No edema, no calf tenderness, normal peripheral pulses. NEURO:? Oriented and alert x3.? No focal weakness.? Reflexes symmetric.? Gait normal. SKIN:? There are no skin lesions evident. No objective signs of Raynaud's phenomenon. JOINT EXAM: Cervical Spine:.? Full range of motion without pain; no tenderness. Thoracic Spine:.? No scoliosis.? No tenderness on palpation. Lumbar Spine:.? Alignment normal.? Full range of motion without pain, mild tenderness to right flank Chest Wall:.? No tenderness, swelling, increased warmth or erythema. Hands:.? Normal pain-free range of motion without tenderness, swelling, increased warmth or erythema. Able to make a full fist and has a good improvement analyst strength. Wrists:.? Normal pain-free range of motion without tenderness, swelling, increased warmth or erythema. Elbows:. Normal pain-free range of motion without tenderness, swelling, increased warmth or erythema. Shoulders:.?? Full range of motion without pain. No tenderness, weakness, swelling, increased warmth or erythema. Hips:.? Full range of motion without pain. Hip bursa:.? No tenderness. Knees:.?? Normal pain-free range of motion without tenderness, swelling, increased warmth or erythema.? There is no effusion or crepitation Ankles:.? Normal pain-free range of motion. There is tenderness and swellings to right ankle with mild warmth. But no increased erythema. Left ankle is WNL. Feet:.? Normal pain-free range of motion without tenderness, swelling, increased warmth or erythema. Results Reviewed Results Reviewed: Laboratory Tests 06/11/23 08:12 WBC 7.2 RBC 5.20 Hgb 15.5 Hct 45.0 ESR 6 AST 21 ALT 21 C-Reactive Protein < 0.10 EXAMINATION: 06/11/2023 XR hand LT min 3V, XR hand RT min 3V FINDINGS: * No acute fracture or dislocation. * Joint spaces are maintained without significant degenerative change. * No soft tissue abnormality. Assessment & Plan Assessment & Plan (1) Pain in joint involving multiple sites: Code(s): M25.50 - Pain in unspecified joint (2) Bilateral hand swelling: Code(s): M79.89 - Other specified soft tissue disorders Plan #Right hand and Ankle swelling:The patient presents with multiple joint pains. On initial physical examination, review of history and available diagnostic does not appear that the patient has an active connective tissue process. However it is possible that he may have crystal arthropathy to the right ankle given the swelling and tenderness. I will prescribe colchicine and reassess for improvement. I will also do additional labs for further evaluation. Follow-up in 2 weeks. I spent 45 minutes reviewing history, evaluating and counseling patient and documenting Orders: Orders Anti DNA DS Antibody 07/07/23 M1.90 - Unspecified osteoarthritis, unspecified site, M79.10 - Myalgia, unspecified site Anti Extractable Nuclear Ag 07/07/23 M1.90 - Unspecified osteoarthritis, unspecified site, M79.10 - Myalgia, unspecified site Complement C4 07/07/23 M1.90 - Unspecified osteoarthritis, unspecified site, M79.10 - Myalgia, unspecified site Creatine Kinase Total 07/07/23 M1.90 - Unspecified osteoarthritis, unspecified site, M79.10 - Myalgia, unspecified site Erythrocyte Sedimentation Rate 07/07/23 M1.90 - Unspecified osteoarthritis, unspecified site, M79.10 - Myalgia, unspecified site Aldolase 07/07/23 M1.90 - Unspecified osteoarthritis, unspecified site, M79.10 - Myalgia, unspecified site OLGA Reflex Titer and Pattern 07/07/23 M1.90 - Unspecified osteoarthritis, unspecified site, M79.10 - Myalgia, unspecified site Complement C3 07/07/23 M1.90 - Unspecified osteoarthritis, unspecified site, M79.10 - Myalgia, unspecified site C Reactive Protein 07/07/23 M19.90 - Unspecified osteoarthritis, unspecified site, M79.10 - Myalgia, unspecified site Immunoglobulins,IgG IgA IgM 07/07/23 M1.90 - Unspecified osteoarthritis, unspecified site, M79.10 - Myalgia, unspecified site Protein Electrophoresis, Serum 07/07/23 M19.90 - Unspecified osteoarthritis, unspecified site, M79.10 - Myalgia, unspecified site Sjogren's Antibodies 07/07/23 M19.90 - Unspecified osteoarthritis, unspecified site, M79.10 - Myalgia, unspecified site Uric Acid 07/07/23 M19.90 - Unspecified osteoarthritis, unspecified site, M79.10 - Myalgia, unspecified site Medications: New colchicine 0.6 mg PO DAILY 10 tabs 0RF M79.89 - Other specified soft tissue disorders Coding Level of Care Code New Pt Level 4 (79879) Diagnoses Pain in joint involving multiple sites M25.50 Bilateral hand swelling M79.89
[2023-07-07 09:42] VITALS: BP 116/70; TEMP 36.6; BMI 29.6
== END 2023-07-07 11:07 | disposition home or self-care (01) ==
PROVIDERS: PCP Internal Medicine; Visit Provider Nurse Practitioner Family
DX: M25.50 Pain in unspecified joint (principal); M79.89 Other specified soft tissue disorders
CPT/HCPCS: 99204

== ENCOUNTER → 2023-07-07 09:31 | Outpatient (BNVA) | payer OTHER, SELFPAY | PROVIDERS: PCP Internal Medicine; Visit Provider Nurse Practitioner Family | DX: M25.50 Pain in unspecified joint (principal); M79.89 Other specified soft tissue disorders | CPT/HCPCS: 99202 ==

== ENCOUNTER 2023-07-07 11:14 | Outpatient (REF) | payer OTHER, SELFPAY ==
[2023-07-07 14:13] LABS: Erythrocyte Sedimentation Rate 5 MM/HR (0-15)
[2023-07-07 16:21] LABS: C Reactive Protein < 0.10 mg/dL (< or = 0.50); Uric Acid 5.7 mg/dL (3.4-7.0)
[2023-07-08 16:30] LABS: Complement C3 141 mg/dL (82-185)
[2023-07-09 11:38] LABS: Prot Elec - Albumin 4.5 g/dL (3.8-4.8); Prot Elec - Alpha1 0.3 g/dL (0.2-0.3); Prot Elec - Alpha2 0.6 g/dL (0.5-0.9); Prot Elec - Beta 1 0.5 g/dL (0.4-0.6); Prot Elec - Beta 2 0.5 g/dL (0.2-0.5); Prot Elec - Gamma 1.2 g/dL (0.8-1.7); Prot Elec - Total Protein 7.5 g/dL (6.1-8.1)
[2023-07-09 12:58] LABS: Anti DNA DS Antibody 3 IU/mL; Antibody to SS-A Antigen <1.0 NEG AI (<1.0 NEG); Antibody to SS-B Antigen <1.0 NEG AI (<1.0 NEG); SM/Ribonucleoprotein Ab <1.0 NEG AI (<1.0 NEG); Smith Protein <1.0 NEG AI (<1.0 NEG)
[2023-07-09 22:09] LABS: IgA 368 mg/dL (70-320); IgG 1285 mg/dL (600-1540); IgM 148 mg/dL (50-300)
[2023-07-15 08:33] LABS: Anti Nuclear Antibody Screen NEGATIVE (NEGATIVE)
== END 2023-07-07 11:15 | disposition home or self-care (01) ==
LOC: HO.10HDL 11:14
PROVIDERS: Visit Provider Nurse Practitioner Family
DX: M19.90 Unspecified osteoarthritis, unspecified site (principal); M79.10 Myalgia, unspecified site
CPT/HCPCS: 36415; 82085; 82550; 82784; 84165; 84550; 85652; 86038; 86140; 86160; 86225; 86235

== ENCOUNTER 2023-07-22 09:16 | Outpatient (AMB) | payer OTHER, SELFPAY ==
--- NOTE | 2023-07-22 09:26 | A.OFFVIS_ITS ---
Intake Vital Signs 07/22/23 09:30 Height 5 ft 8 in Weight 197 lb 8.547 oz BMI 30.0 BP 128/62 Blood Pressure Location Rt brachial Position Sitting Pulse 73 Pulse Source Pulse Oximeter Temp 97.7 F Temp Source Skin Pulse Oximetry (%) 95 Oxygen Delivery Method Room Air Intake Visit Reasons: Swollen Suhas 2nd MCP. Intake Note: Patient last seen 07/07/23 by Anjel, presents today for a 2 week follow up and test results. Reports back pain due to recent fall fixing a light at [employer]. 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 Senior Radiation Therapist Required: No Accompanied by: Self / Same As Patient Allergies No Known Allergies Allergy (Verified 07/22/23 09:30) Medication List - Last Reconciled 07/22/23 by Triny Hobbs, PATIENT EXPERIENCE COORDINATOR- buspirone 10 mg PO BID citalopram 40 mg PO DAILY enalapril maleate 10 mg PO DAILY fluticasone propionate 50 mcg/actuation 1 spray intranasal DAILY hydroxyzine HCl 25 mg PO BID prednisone 3 tablets per day x 7 days 2 tablets per day x 7 days 1 tablet per day x 7 days quetiapine 25 mg PO BEDTIME rosuvastatin 10 mg PO DAILY trazodone 25 mg PO DAILY HPI HPI Comments History of Present Illness Details Mr. tabor 63-year-old male returns for follow-up of his initial visit for evaluation of MCP pain and tenderness. He had 3 days pf colchicine but stopped due to diarrhea. Today the patient also reports that he hurt his back from twisting while changing a light bulb. He appears in some distress pain with movement and walking because of muscle spasm. He has not yet spoken to primary care nor is taking any medication to address. This happened yesterday. Initial history Mr. Rivera 63-year-old male here for 1st time for evaluation of joint pain. The patient describes that he has been having increasing joint pain with movement in his hands, knees lower back and ankles. The pain has been present for at least 2 years. He denies prolonged morning stiffness, joint redness, and warmth but some joints do swell. He says his right ankle hurts more than the left and does get swollen. He also reports pain to the dorsum of his right hand that is sometimes swollen. He says that Aleve helps his joint pains. He denies any family history of autoimmune disease. The patient talks a lot about his depression and is seeing a therapist. [facility] Medical History (Updated 07/12/23 @ 16:34 [facility] Pain in joint involving multiple sites Bilateral hand swelling Allergic rhinitis SHAHRIAR on CPAP Generalized anxiety disorder Hypercholesterolemia Essential hypertension Osteoarthritis of right hip Coronary artery disease due to lipid rich plaque Surgical History History of prostate surgery History of repair of rotator cuff History of hemorrhoidectomy Family History (Updated 07/07/23 @ 09:47 by ARNULFO Alberto) Father No problems noted. Mother No problems noted. Sister Anemia Arthritis Sister Arthritis Social History (Updated 07/07/23 @ 09:48 by ARNULFO Alberto) Household Members: Spouse Housing: Apartment Alcohol intake: former Year quit: 20y Patient Tobacco Use Status: Former Tobacco user (30 years ago) e-Cigarette/Vaping Use: Never Used Second Hand Smoke Exposure: No service: No Current occupational status: disabled Cognitive needs: No Hearing needs: No Vision needs: Yes (Glasses) Review of Systems Const All systems reviewed & are unremarkable except as noted in HPI and below Physical Exam Vital Signs: Last Vital Signs Temp 97.7 F 07/22/23 09:30 Pulse 73 07/22/23 09:30 BP 128/62 07/22/23 09:30 Pulse Ox 95 07/22/23 09:30 Oxygen Delivery Method Room Air 07/22/23 09:30 BMI result Body Mass Index 30.0 APPEARANCE: Patient in no acute distress, nourished, groomed EYES no redness, normal EARS:? External ear normal. NOSE/SINUS:? Airflow through both nares, no nasal discharge, no bleeding THROAT:? Oral mucosa moist, no ulcerations NECK:? No thyromegaly or masses, no adenopathy, trachea midline. HEART:? Regular rhythm, S1-S2 heard, no murmurs, rubs or gallops. LUNG:? Clear to percussion and auscultation EXTREMITIES:? No edema, no calf tenderness, normal peripheral pulses. NEURO:? Oriented and alert x3.? No focal weakness.? Reflexes symmetric.? Gait normal. SKIN:? There are no skin lesions evident. No objective signs of Raynaud's phenomenon. JOINT EXAM: Cervical Spine:.? Full range of motion without pain; no tenderness. Thoracic Spine:.? No scoliosis.? No tenderness on palpation. Lumbar Spine:.? Alignment normal.? Full range of motion without pain, mild tenderness to right flank Chest Wall:.? No tenderness, swelling, increased warmth or erythema. Hands:.? Normal range of motion with pain and stiffness, with tenderness, increased erythema to 2nd and 3rd MCP but no swelling or increased warmth . Able to make a full fist and has a good quartz miner strength but with pain. Wrists:.? Normal pain-free range of motion without tenderness, swelling, increased warmth or erythema. Elbows:. Normal pain-free range of motion without tenderness, swelling, increased warmth or erythema. Shoulders:.?? Full range of motion without pain. No tenderness, weakness, swelling, increased warmth or erythema. Hips:.? Full range of motion without pain. Hip bursa:.? No tenderness. Knees:.?? Normal pain-free range of motion without tenderness, swelling, increased warmth or erythema.? There is no effusion or crepitation Ankles:.? Normal pain-free range of motion. There is tenderness and swellings to right ankle with mild warmth. But no increased erythema. Left ankle is WNL. Feet:.? Normal pain-free range of motion without tenderness, swelling, increased warmth or erythema. Results Reviewed Results Reviewed: UA 5.7 ESR/CRP within normal range. Assessment & Plan Assessment & Plan (1) Pain in joint involving multiple sites: Code(s): M25.50 - Pain in unspecified joint (2) Bilateral hand swelling: Code(s): M79.89 - Other specified soft tissue disorders Plan #Right hand and Ankle swelling:The patient presents with multiple joint pains to hands and ankle. On initial physical examination, review of history and available diagnostic does not appear that the patient has an active connective tissue process. However it is possible that he may have crystal arthropathy to the right ankle given the swelling and tenderness. I didl prescribe colchicine but he had diarreah after 3 days and reported no improvement. His UA was 5.7 WNL. I will prescribe a course of Prednisone and reassess. #Muscle spasm to Back: Recommend Heat and Ibuprofen and rest. Follow-up in 4 months . I spent 25 minutes reviewing history, evaluating and counseling patient and documenting Medications: New prednisone 3 tablets per day x 7 days 2 tablets per day x 7 days 1 tablet per day x 7 days 30 tabs 0RF M25.50 - Pain in unspecified joint, M79.89 - Other specified soft tissue disorders prednisone 3 tablets per day x 7 days 2 tablets per day x 7 days 1 tablet per d ay x 7 days 30 tabs 0RF M25.50 - Pain in unspecified joint, M79.89 - Other specified soft tissue disorders prednisone 3 tablets per day x 7 days 2 tablets per day x 7 days 1 tablet per day x 7 days 45 tabs 0RF M25.50 - Pain in unspecified joint, M79.89 - Other specified soft tissue disorders Discontinued colchicine Discontinued Reason: Doctor's Order 0.6 mg PO DAILY 10 tabs 0RF M79.89 - Other specified soft tissue disorders Coding Level of Care Code Est Pt Level 3 (37180) Diagnoses Pain in joint involving multiple sites M25.50 Bilateral hand swelling M79.89
[2023-07-22 09:30] VITALS: BP 128/62; PULSE 73; TEMP 36.5; O2SAT 95
== END 2023-07-22 09:56 | disposition home or self-care (01) ==
PROVIDERS: PCP Internal Medicine; Visit Provider Nurse Practitioner Family
DX: M25.50 Pain in unspecified joint (principal); M79.89 Other specified soft tissue disorders
CPT/HCPCS: 99213

== ENCOUNTER → 2023-07-22 09:16 | Outpatient (BNVA) | payer OTHER, SELFPAY | PROVIDERS: PCP Internal Medicine; Visit Provider Nurse Practitioner Family | DX: M25.50 Pain in unspecified joint (principal); M79.89 Other specified soft tissue disorders | CPT/HCPCS: 99212 ==

== ENCOUNTER 2023-10-22 13:13 | Outpatient (AMB) | payer OTHER, SELFPAY ==
[2023-10-22 13:16] VITALS: BP 100/62; PULSE 75; O2SAT 95; BMI 29.3
--- NOTE | 2023-10-22 13:16 | A.OFFVIS_ITS ---
Vital Signs 10/22/23 13:16 Height 5 ft 8 in Weight 192 lb 14.472 oz BMI 29.3 BP 100/62 Blood Pressure Location Lt brachial Position Sitting Pulse 75 Pulse Source Pulse Oximeter Pulse Oximetry (%) 95 Oxygen Delivery Method Room Air Intake Visit Reasons: COPD Intake Note: pt is here for follow up and states he is not that bad, but he is having problems with machine. Account Executive Sales Representative Required: No Allergies No Known Allergies Allergy (Verified 10/22/23 13:28) Medication List - Last Reconciled 10/22/23 by Mckinley Cooley MD buspirone 10 mg PO BID citalopram 40 mg PO DAILY enalapril maleate 10 mg PO DAILY fluticasone propionate 50 mcg/actuation 1 spray intranasal DAILY hydroxyzine HCl 25 mg PO BID prednisone 3 tablets per day x 7 days 2 tablets per day x 7 days 1 tablet per day x 7 days quetiapine 25 mg PO BEDTIME rosuvastatin 10 mg PO DAILY trazodone 25 mg PO DAILY Do you need a note to return to daycare/school/sports/work: No HPI HPI COPD: Details: 63 YEARS OLD VERY PLEASANT GENTLEMAN IS HERE FOR 6 MONTHS FOLLOW-UP HE HAS CHRONIC NASAL CONGESTION WITH INTERMITTENT FLARE UPS BUT USUALLY CONTROLLED WITH HIS CURRENT REGIMEN. BREATHING HAS BEEN GOOD AND HE HAS NOT NEEDED TO USE ANY BRONCHODILATOR INHALER. USES CPAP VERY REGULARLY AND SLEEPS WELL, BECAUSE WITHOUT USING THE CPAP HE IS NOT ABLE TO SLEEP. LATELY HAS FOUND SOME ISSUE WITH THE CPAP MACHINE, THAT ON SOME NIGHTS IT SHUTS OFF AUTOMATICALLY. THIS HAS HAPPENED A FEW NIGHTS. ON THE NIGHTS THAT HIS CPAP SHORTS OF HE WAKES UP IN THE MORNING SOMEWHAT TIRED AND THEN REMAINS SLEEPY DURING THE DAYTIME. [facility] Medical History Pain in joint involving multiple sites Bilateral hand swelling Allergic rhinitis SHAHRIAR on CPAP Generalized anxiety disorder Hypercholesterolemia Essential hypertension Osteoarthritis of right hip Coronary artery disease due to lipid rich plaque Surgical History History of prostate surgery History of repair of rotator cuff History of hemorrhoidectomy Family History Father No problems noted. Mother No problems noted. Sister Anemia Arthritis Sister Arthritis Social History Household Members: Spouse Housing: Apartment Alcohol intake: former Year quit: 20y Patient Tobacco Use Status: Former Tobacco user (30 years ago) e-Cigarette/Vaping Use: Never Used Second Hand Smoke Exposure: No service: No Current occupational status: disabled Cognitive needs: No Hearing needs: No Vision needs: Yes (Glasses) Review of Systems Const All systems reviewed & are unremarkable except as noted in HPI and below Eyes Reports no additional complaints ENT Reports nasal congestion (Only mild once in a while) Card Denies chest pain, Denies irregular heart rhythm, Denies leg edema and Denies dyspnea Resp Denies cough, Denies dyspnea and Denies wheezing GI Reports dyspepsia (Chronic nonspecific) and Reports heartburn Reports no additional complaints Musc Reports myalgias (Chronic due to arthritis) Skin/Breast Reports system reviewed and no additional complaints, except as documented Neuro Reports no additional complaints Psych Reports anxiety (Controlled with medicine) Aller/Immun Denies wheezing Physical Exam Vital Signs: Last Vital Signs Pulse 75 10/22/23 13:16 BP 100/62 10/22/23 13:16 Pulse Ox 95 10/22/23 13:16 Oxygen Delivery Method Room Air 10/22/23 13:16 BMI result Body Mass Index 29.3 Const General: healthy appearing, comfortable, no acute distress, alert and awake Orientation/consciousness: patient oriented x3 HEENT Head: Yes normal to inspection General nose exam: No nasal polyps present, No nasal discharge present and Other nasal findings present (MILD NASAL CONGESTION) Face and sinus: Yes sinuses nontender Mouth: oropharynx normal Teeth and gingiva: other (HE HAS PROMINENT RETROGANTHIA OF THE LOWER JAW) Throat: Yes posterior oropharynx normal Eyes General: appearance normal, both eyes and all related structures Neck Neck: Yes normal visual inspection, Yes no lymphadenopathy, Yes trachea midline and Yes no JVD Thyroid: Thyroid normal Chest Chest palpation & inspection: normal inspection of the chest, normal palpation of entire chest wall and no tenderness Resp Effort & Inspection: normal respiratory effort Auscultation: clear to auscultation bilaterally, no crackles and no wheezes Cardio Palpation: normal PMI Rate: regular rate Rhythm: regular rhythm Heart sounds: no gallops and no murmurs Peripheral pulses: Peripheral pulses 2+ throughout GI Palpation (GI): Soft to palpation, nontender, No hepatosplenomegaly present and no masses Auscultation: normal bowel sounds Back/Spine/Pelvis Thoracic/Lumbar Spine: thoracic and lumbar spine normal to inspection Skin General skin exam: no rashes or lesions noted Neuro General: patient oriented x3 and no focal motor deficits Cranial nerves: Yes CN's II-XII intact bilaterally Extrem General: Yes normal to inspection, Yes no clubbing, cyanosis or edema and Yes no calf tenderness Psych Appearance: grossly normal and well kempt Speech and movement: Normal speech and movement present Results Reviewed Results Reviewed: COMPLIANCE REPORT FOR THE LAST 30 NIGHTS IS REVIEWED. HE HAS USED 30/30 NIGHTS. , 100% AVERAGE USE IT PER NIGHT. 5 HOURS 23 MINUTES ON ABOUT 3 NIGHTS HE USED ONLY FOR ABOUT 2 HOURS, AND THESE ARE THE NIGHTS WHEN HIS CPAP MACHINE SATS OF AUTOMATICALLY. IT IS NOTED THAT HE DOES HAVE MODERATE THE AMOUNT OF AIR LEAK. AND THIS MAY BE CAUSING THE MACHINE TO SHORT OF. Assessment & Plan Assessment & Plan (1) SHAHRIAR on CPAP: Comment: KNOWN CASE OF SHAHRIAR AND HAS BEEN VERY COMPLIANT, PRESSURE 6- 16 CMs FULL FACE MASK . NO ISSUES WITH THE USE OF CPAP, EXCEPT THAT ON CERTAIN NIGHTS IT SHUTS OFF AFTER BEING USED FOR A FEW HOURS Code(s): G47.33 - Obstructive sleep apnea (adult) (pediatric); Z99.89 - Dependence on other enabling machines and devices Category: Medical Plan: EXPLAINED THAT HIS COMPLIANCE HAS BEEN RELATIVELY GOOD, THERE IS SOME AIR LEAK AND HE IS INSTRUCTED TO TIGHTEN THE STRAPS, ALSO GIVEN HIM THE NUMBER OF WALK IN CPAP CLINIC , AND HE WILL TAKE HIS MACHINE AND HAVE IT CHECKED FOR ANY POSSIBLE MECHANICAL DEFECT. (2) Allergic rhinitis: Comment: HE HAS MILD CHRONIC ALLERGIC RHINITIS. WELL CONTROLLED WITH USE OF FLONASE 2 SPRAY IN EACH NOSTRIL DAILY. Code(s): J30.9 - Allergic rhinitis, unspecified Category: Medical Plan: CONTINUE TO USE FLONASE 2 SPRAY IN EACH NOSTRIL DAILY AT BEDTIME (3) Shortness of breath: Comment: HE DESCRIBES GETTING SHORT OF BREATH MORE EASILY. ALSO SOMETIMES IF HE HAS DIFFICULTY IN BREATHING. BUT DOES NOT HAVE ANY BOUTS OF COUGH OR WHEEZING. HIS SPIROMETRY HAS BEEN NORMAL Code(s): R06.02 - Shortness of breath Category: Medical Plan: REASSURED AND ADVISED TO KEEP ON DOING DEEP BREATHING EXERCISES A FEW TIMES EVERY DAY Coding Level of Care Code Est Pt Level 3 (74595) Diagnoses SHAHRIAR on CPAP G47.33; Z99.89 Allergic rhinitis J30.9 Shortness of breath R06.02
== END 2023-10-22 13:30 | disposition home or self-care (01) ==
PROVIDERS: PCP Internal Medicine; Visit Provider Internal Medicine
DX: G47.33 Obstructive sleep apnea (adult) (pediatric) (principal); Z99.89 Dependence on other enabling machines and devices; J30.9 Allergic rhinitis, unspecified; R06.02 Shortness of breath
CPT/HCPCS: 99213

== ENCOUNTER → 2023-10-22 13:13 | Outpatient (BNVA) | payer OTHER, SELFPAY | PROVIDERS: PCP Internal Medicine; Visit Provider Internal Medicine | DX: J30.9 Allergic rhinitis, unspecified (principal); R06.02 Shortness of breath; G47.33 Obstructive sleep apnea (adult) (pediatric); Z99.89 Dependence on other enabling machines and devices | CPT/HCPCS: 99212 ==

== ENCOUNTER 2024-01-15 08:20 | Outpatient (AMB) | payer OTHER, SELFPAY ==
[2024-01-15 08:30] VITALS: BP 132/84; PULSE 81; TEMP 37.2; O2SAT 97; BMI 28.1
--- NOTE | 2024-01-15 08:30 | MHC.OFFWIV ---
Intake Vital Signs 01/15/24 08:30 Height 5 ft 8 in Weight 185 lb BMI 28.1 BP 132/84 Blood Pressure Location Lt brachial Position Sitting Pulse 81 Pulse Source Pulse Oximeter Temp 99.0 F Temp Source Oral Pulse Oximetry (%) 97 Oxygen Delivery Method Room Air Intake Visit Reasons: EP-nausea, dizziness, bowel moment Intake Note: pt c/o Nausea diarrhea, blurry vision and dizziness. Started 3 days ago Patient Tobacco Use Status: Former Tobacco user (30 years ago) Allergies No Known Allergies Allergy (Verified 01/15/24 08:34) Do you need a note to return to daycare/school/sports/work: No HPI HPI Comments History of Present Illness Details Patient is a 64-year-old male complaining of a week of nausea, diarrhea, dizziness and blurry vision. He states he started taking 2 mg prazosin as prescribed by his primary care doctor for nightmares. He states he did start with a 1 mg dose but is soon as he bumped up to 2 mg his symptoms started. He denies any vomiting. [facility] Medical History Pain in joint involving multiple sites Bilateral hand swelling Allergic rhinitis SHAHRIAR on CPAP Generalized anxiety disorder Hypercholesterolemia Essential hypertension Osteoarthritis of right hip Coronary artery disease due to lipid rich plaque Surgical History History of prostate surgery History of repair of rotator cuff History of hemorrhoidectomy Family History Father No problems noted. Mother No problems noted. Sister Anemia Arthritis Sister Arthritis Social History Household Members: Spouse Housing: Apartment Alcohol intake: former Year quit: 20y Patient Tobacco Use Status: Former Tobacco user (30 years ago) e-Cigarette/Vaping Use: Never Used Second Hand Smoke Exposure: No service: No Current occupational status: disabled Cognitive needs: No Hearing needs: No Vision needs: Yes (Glasses) Review of Systems Const All systems reviewed & are unremarkable except as noted in HPI and below Physical Exam Vital Signs: Last Vital Signs Temp 99.0 F 01/15/24 08:30 Pulse 81 01/15/24 08:30 BP 132/84 01/15/24 08:30 Pulse Ox 97 01/15/24 08:30 Oxygen Delivery Method Room Air 01/15/24 08:30 BMI result Body Mass Index 28.1 Const General: cooperative, healthy appearing, comfortable, no acute distress and well developed Orientation/consciousness: patient oriented x3 Limitations: no limitations HEENT Head: Yes normal to inspection Ears: hearing grossly normal bilaterally General nose exam: Normal external nose present Face and sinus: Yes normal facial exam Eyes General: appearance normal, both eyes and all related structures Neck Neck: Yes normal visual inspection and Yes full ROM Resp Effort & Inspection: normal respiratory effort and able to speak in complete sentences Skin General skin exam: no rashes or lesions noted Neuro General: patient oriented x3 Extrem General: Yes normal to inspection Assessment & Plan Assessment & Plan (1) Medication reaction: Code(s): T50.905A - Adverse effect of unspecified drugs, medicaments and biological substances, initial encounter Qualifiers: Encounter type: initial encounter Qualified Code(s): T50.905A - Adverse effect of unspecified drugs, medicaments and biological substances, initial encounter Plan: Recommended patient stop taking the medication and reach out to his primary care doctor for further management. Plan See above Coding Level of Care Code Est Pt Level 3 (31407) Diagnoses Adverse effect of drug, initial encounter T50.905A Encounter type: initial encounter
== END 2024-01-15 08:55 | disposition home or self-care (01) ==
PROVIDERS: PCP Internal Medicine; Visit Provider Physician Assistant
DX: T50.905A Adverse effect of unspecified drugs, medicaments and biological substances, initial encounter (principal)
CPT/HCPCS: 99213

== ENCOUNTER 2024-01-15 09:02 | Outpatient (REF) | payer OTHER, SELFPAY ==
[2024-01-15 12:26] LABS: Influenza A PCR NEGATIVE (Negative); Influenza B PCR NEGATIVE (Negative); Resp Syncy Virus RNA Qual PCR NEGATIVE (Negative); SARS COV2 PCR INHOUSE NEGATIVE (Negative)
== END 2024-01-15 09:03 | disposition home or self-care (01) ==
LOC: HO.LAB 09:02
PROVIDERS: Visit Provider Physician Assistant
DX: J06.9 Acute upper respiratory infection, unspecified (principal)
CPT/HCPCS: 0241U

== ENCOUNTER 2024-01-25 08:10 | Outpatient (AMB) | payer OTHER, SELFPAY ==
[2024-01-25 08:59] VITALS: BP 124/82; PULSE 71; O2SAT 96; BMI 28.1
--- NOTE | 2024-01-25 08:59 | MHC.PC.OV ---
Vital Signs 01/25/24 08:59 Height 5 ft 8 in Weight 185 lb BMI 28.1 BP 124/82 Blood Pressure Location Lt brachial Position Sitting Pulse 71 Pulse Source Pulse Oximeter Pulse Oximetry (%) 96 Oxygen Delivery Method Room Air Intake Visit Reasons: follow up Intake Note: Patient is here to follow up on medication reaction from possible Prazosin. Dizziness, nauseous, eye twitching and ear popping. 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 In the last month, patient has been feeling dizzy, congestion symptoms in the face. He was seen at the walk-in clinic and tested negative for COVID. Patient on his own accord stopped the venlafaxine, buspirone, quetiapine and prazosin. He had been only taking the prazosin for 2 weeks before he discontinued it. He is getting these medications from a mental health provider in [place]. He believes his symptoms worsened after he started taking prazosin. Since discontinuing of the said medications, there is not much improvement in his symptoms of dizziness. His arthritis symptoms a reasonably well controlled. 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 [facility] Medical History Pain in joint involving multiple sites Bilateral hand swelling Allergic rhinitis SHAHRIAR on CPAP Generalized anxiety disorder Hypercholesterolemia Essential hypertension Osteoarthritis of right hip Coronary artery disease due to lipid rich plaque Surgical History History of colonoscopy (~02/25/19) History of prostate surgery History of repair of rotator cuff History of hemorrhoidectomy Family History Father No problems noted. Mother No problems noted. Sister Anemia Arthritis Sister Arthritis Social History Household Members: Spouse Housing: Apartment Alcohol intake: former Year quit: 20y Patient Tobacco Use Status: Former Tobacco user (30 years ago) e-Cigarette/Vaping Use: Never Used Second Hand Smoke Exposure: No service: No Current occupational status: disabled Cognitive needs: No Hearing needs: No Vision needs: Yes (Glasses) Questionnaire PHQ-9 Over the last 2 weeks, how often have you been bothered by any of the following problems? 1. Little interest or pleasure in doing things: nearly every day 2. Feeling down, depressed, or hopeless: several days 3. Trouble falling or staying asleep, or sleeping too much: more than half the days 4. Feeling tired or having little energy: several days 5. Poor appetite or overeating: not at all 6. Feeling bad about yourself - or that you are a failure or have let yourself or your family down: several days 7. Trouble concentrating on things, such as reading the newspaper or watching television: several days 8. Moving or speaking so slowly that other people could have noticed. Or the opposite - being so fidgety or restless that you have been moving around a lot more than usual: several days 9. Thoughts that you would be better off or of hurting yourself in some way: several days Total score: 11 Depression Screening Interpretation: Positive Depression Screening Follow-up: Existing condition, In treatment and Change in Medication Depression Screening Done: Yes Source: Developed by Drs. Antonio Ott, Sravanthi Kowalski, Jeramy Holland and colleagues, with an educational keara from [email or web address]. Thrive Questionnaire Date Thrive assessed: 01/25/24 I am a: Patient What is your living situation today?: I have a steady place to live Within the past 12 months, did the food you bought not last and you didn't have the money to get more?: Never true Within the past 12 months, did you worry whether your food would run out before you got money to buy more?: Never true Do you have trouble paying for medicines?: No Do you have trouble getting transportation to medical appointments?: No Do you have trouble paying your heating and electricity bill?: No Do you have trouble taking care of your child, family member or friend?: No Do you have trouble with day-to-day activities such as bathing, preparing meals, shopping, managing finances, etc.?: No Are you currently unemployed and looking for a job?: No Are you interested in more education?: No Please select the resources that you would like help with: None Currently or been in a relationship where the following occur: No concerns reported THRIVE Score: 0 AUDIT C Alcohol Use Questionnaire (AUDIT-C) 1. How often do you have a drink containing alcohol?: Never Total Score: 0 SEBASTIAN-7 AMB Questionnaire SEBASTIAN-7 Date SEBASTIAN - 7 assessed: 01/25/24 Feeling nervous, anxious, or on edge: 1 = Several days Not being able to stop or control worryin = Several days Worrying too much about different things: 1 = Several days Trouble relaxin = Several days Being so restless that it is hard to sit still: 2 = More than half the days Becoming easily annoyed or irritable: 2 = More than half the days Feeling afraid as if something awful might happen: 1 = Several days Total SEBASTIAN-7 score (0-4 normal; 5-9 mild; 10-14 moderate; 15-21 severe): 9 Source: Developed by Drs. Antonio Ott, Sravanthi Kowalski, Jeramy Holland and colleagues, with an educational keara from [email or web address]. Physical exam (Primary Care) Vital Signs: Last Vital Signs Pulse 71 01/25/24 08:59 BP 124/82 01/25/24 08:59 Pulse Ox 96 01/25/24 08:59 Oxygen Delivery Method Room Air 01/25/24 08:59 Care Plan Goal for BP management: Blood pressure is in range. BMI result Body Mass Index 28.1 Tobacco/Smoking Status: Tobacco use Status Tobacco use date assessed 01/25/24 01/25/24 09:01 Patient Tobacco Use Status Former Tobacco user (30 01/25/24 09:01 years ago) e-Cigarette/Vaping Use Never Used 01/25/24 09:01 PHQ-9: PHQ-9 Score PHQ-9: Total score 11 01/25/24 09:32 Depression Screening Interpretation: Positive Depression Screening Follow-up: Existing condition, In treatment and Change in Medication Thrive Assessment: Date of Thrive Assessment Date Thrive assessed 01/25/24 01/25/24 09:01 Currently or been in a relationship where the following occur: No concerns reported Const General: cooperative and healthy appearing Nutritional Appearance: well nourished Orientation/consciousness: patient oriented x3 Limitations: no limitations HENMT Head: Yes normal to inspection Eyes General: appearance normal, both eyes and all related structures Neck Neck: Yes normal visual inspection Chest Chest palpation & inspection: normal palpation of entire chest wall Resp Effort & Inspection: normal respiratory effort Neuro General: patient oriented x3 Assessment and Plan Assessment & Plan (1) Generalized anxiety disorder: Code(s): F41.1 - Generalized anxiety disorder Plan: I encouraged the patient to restart all his medications for depression. He should follow-up with the mental health provider regarding the dosages on the medicine. The quetiapine has been increased to 50 mg once a day. I agreed that he can hold off the prazosin. Patient was encouraged to bring his on the next visit. Coding Level of Care Code Est Pt Level 4 (90400) Complex EM visit Add On G2211 Diagnoses Generalized anxiety disorder F41.1
== END 2024-01-25 10:04 | disposition home or self-care (01) ==
PROVIDERS: PCP Internal Medicine; Visit Provider Internal Medicine
DX: F41.1 Generalized anxiety disorder (principal)

== ENCOUNTER → 2024-01-25 08:10 | Outpatient (BNVA) | payer OTHER, SELFPAY | PROVIDERS: PCP Internal Medicine; Visit Provider Internal Medicine | DX: F41.1 Generalized anxiety disorder (principal) | CPT/HCPCS: 96127; 99212 ==

== ENCOUNTER 2024-01-26 07:25 | Outpatient (REF) | payer OTHER, SELFPAY ==
[2024-01-26 07:44] LABS: Hematocrit 44.5 % (42.0-52.0); Hemoglobin 14.9 g/dl (14.0-18.0); Mean Corpuscular HGB Conc 33.5 g/dl (31.0-36.0); Mean Corpuscular Hemoglobin 29.7 pg (27.0-33.0); Mean Corpuscular Volume 88.6 fL (80.0-98.0); Mean Platelet Volume 9.4 fL (9.4-12.4); Platelet Count 227 X10*3/uL (160-400); Red Blood Count 5.02 X10*6/uL (4.60-5.80); Red Cell Distribution Width 12.8 % (11.0-16.0); White Blood Count 5.9 X10*3/uL (4.8-10.8)
[2024-01-26 08:14] LABS: Alanine Aminotransferase 18 U/L (0-40); Albumin Level 4.1 g/dL (3.5-5.0); Alkaline Phosphatase 95 U/L (39-117); Anion Gap 11 (12-20); Aspartate Amino Transferase 17 U/L (5-37); Bilirubin Direct 0.2 mg/dL (0.0-0.5); Bilirubin Total 0.7 mg/dL (0.0-1.0); Blood Urea Nitrogen 16 mg/dL (9-16); Calcium 9.7 mg/dL (8.4-10.2); Carbon Dioxide 26 mmol/L (22-29); Chloride 109 mmol/L (96-108); Cholesterol 198 mg/dL (<200); Estimated Glomerular Filt Rate > 60; Glucose Random 102 mg/dL (60-115); HDL Cholesterol 58 mg/dL (>40); LDL Cholesterol Calculated 121 mg/dL (<100); Potassium 4.3 mmol/L (3.3-5.1); Sodium 142 mmol/L (135-145); Total Protein 7.2 g/dL (6.5-8.0); Triglycerides 96 mg/dL (<150)
[2024-01-26 08:25] LABS: Prostate Specific Antigen Scr 0.36 ng/mL (<0.05-4.0)
[2024-01-26 08:29] LABS: Appearance Urine Clear; Color Urine Yellow; Glucose Urine UA Negative (Negative); Leukocyte Esterase Urine Negative (Negative); Nitrite Urine Negative (Negative); Urine Blood Negative (Negative); Urine Ketones Negative (Negative); Urine Protein Negative (Neg-Trace)
[2024-01-26 08:29] LABS: Thyroid Stimulating Hormone 0.86 uIU/mL (0.32-4.0)
== END 2024-01-26 07:26 | disposition home or self-care (01) ==
LOC: HO.LAB 07:25
PROVIDERS: PCP Internal Medicine; Visit Provider Internal Medicine
DX: M25.50 Pain in unspecified joint (principal); F41.1 Generalized anxiety disorder; Z12.5 Encounter for screening for malignant neoplasm of prostate
CPT/HCPCS: 36415; 80048; 80061; 80076; 81003; 84153; 84443; 85027

== ENCOUNTER 2024-03-02 07:41 | Outpatient (AMB) | payer OTHER, SELFPAY ==
[2024-03-02 07:50] VITALS: BP 124/70; PULSE 79; O2SAT 92; BMI 28.6
--- NOTE | 2024-03-02 07:50 | A.OFFPC_ITS ---
Vital Signs 03/02/24 07:50 Height 5 ft 8 in Weight 188 lb BMI 28.6 BP 124/70 Blood Pressure Location Lt brachial Position Sitting Pulse 79 Pulse Source Pulse Oximeter Pulse Oximetry (%) 92 Oxygen Delivery Method Room Air Intake Visit Reasons: annual exam Allergies No Known Allergies Allergy (Verified 03/02/24 08:14) Medication List - Last Reconciled 03/02/24 by Deng Roberts MD enalapril maleate 10 mg PO DAILY fluticasone propionate 50 mcg/actuation 1 spray intranasal DAILY rosuvastatin 10 mg PO DAILY Tobacco use date assessed: 03/02/24 Dental Screening Dental Screen Date: 03/02/24 Did you have a dental visit in the last 12 months?: No Did you have a dental problem in the last 6 months where you did not have access to dental care?: No Was dental information given to patient?: No HPI annual exam HPI Details 64-year-old male presents to the office requesting an annual physical. In the last office visit, quetiapine was increased to 50 mg a day. However patient did not increase the dosage. He is awaiting supplies for his machine for sleep apnea. He does not want to take the medications till the supplies are available. Continues to have anxiety, today he reports he sees a psychiatrist in [place]. [facility] Medical History Pain in joint involving multiple sites Bilateral hand swelling Allergic rhinitis SHAHRIAR on CPAP Generalized anxiety disorder Hypercholesterolemia Essential hypertension Osteoarthritis of right hip Coronary artery disease due to lipid rich plaque Surgical History History of colonoscopy (~02/25/19) History of prostate surgery History of repair of rotator cuff History of hemorrhoidectomy Family History Father No problems noted. Mother No problems noted. Sister Anemia Arthritis Sister Arthritis Social History Household Members: Spouse Housing: Apartment Alcohol intake: former Year quit: 20y Patient Tobacco Use Status: Former Tobacco user (30 years ago) Tobacco use type: Cigarette e-Cigarette/Vaping Use: Never Used Second Hand Smoke Exposure: No service: No Current occupational status: disabled Cognitive needs: No Hearing needs: No Vision needs: Yes (Glasses) Questionnaire PHQ-9 Over the last 2 weeks, how often have you been bothered by any of the following problems? 1. Little interest or pleasure in doing things: not at all 2. Feeling down, depressed, or hopeless: not at all 3. Trouble falling or staying asleep, or sleeping too much: not at all 4. Feeling tired or having little energy: not at all 5. Poor appetite or overeating: not at all 6. Feeling bad about yourself - or that you are a failure or have let yourself or your family down: several days 7. Trouble concentrating on things, such as reading the newspaper or watching television: nearly every day 8. Moving or speaking so slowly that other people could have noticed. Or the opposite - being so fidgety or restless that you have been moving around a lot more than usual: not at all 9. Thoughts that you would be better off or of hurting yourself in some way: several days Total score: 5 Depression Screening Interpretation: Positive Depression Screening Done: Yes 95784 - PHQ-9 Billing: Yes Source: Developed by Drs. Antonio Ott, Sravanthi Kowalski, Jeramy Holland and colleagues, with an educational keara from [employer]. Thrive Questionnaire Date Thrive assessed: 03/02/24 I am a: Patient What is your living situation today?: I have a steady place to live Within the past 12 months, did the food you bought not last and you didn't have the money to get more?: Never true Within the past 12 months, did you worry whether your food would run out before you got money to buy more?: Never true Do you have trouble paying for medicines?: No Do you have trouble getting transportation to medical appointments?: No Do you have trouble paying your heating and electricity bill?: No Do you have trouble taking care of your child, family member or friend?: No Do you have trouble with day-to-day activities such as bathing, preparing meals, shopping, managing finances, etc.?: I choose not to answer this question Are you currently unemployed and looking for a job?: No Are you interested in more education?: I choose not to answer this question Please select the resources that you would like help with: None Currently or been in a relationship where the following occur: I choose not to answer THRIVE Score: 0 AUDIT C Alcohol Use Questionnaire (AUDIT-C) 1. How often do you have a drink containing alcohol?: Never 3. How often do you have six or more drinks on one occasion?: Never Total Score: 0 SEBASTIAN-7 AMB Questionnaire SEBASTIAN-7 Date SEBASTIAN - 7 assessed: 03/02/24 Feeling nervous, anxious, or on edge: 3 = Nearly every day Not being able to stop or control worryin = Nearly every day Worrying too much about different things: 3 = Nearly every day Trouble relaxin = Several days Being so restless that it is hard to sit still: 1 = Several days Becoming easily annoyed or irritable: 1 = Several days Feeling afraid as if something awful might happen: 1 = Several days Total SEBASTIAN-7 score (0-4 normal; 5-9 mild; 10-14 moderate; 15-21 severe): 13 Source: Developed by Drs. Antonio Ott, Sravanthi Kowalski, Jeramy Holland and colleagues, with an educational keara from [employer]. Physical exam (Primary Care) Vital Signs: Oxygen Delivery Method Room Air 03/02/24 07:50 Care Plan Goal for BP management: Blood pressure is in range. Continue medications at same doses. BMI result Body Mass Index 28.6 Tobacco/Smoking Status: Tobacco use Status Tobacco use date assessed 01/25/24 01/25/24 09:01 Patient Tobacco Use Status Former Tobacco user 01/25/24 09:01 e-Cigarette/Vaping Use Never Used 01/25/24 09:01 Depression Screening Interpretation: Positive Thrive Assessment: Date of Thrive Assessment Date Thrive assessed 01/25/24 01/25/24 09:01 Currently or been in a relationship where the following occur: I choose not to answer Const General: cooperative and healthy appearing Nutritional Appearance: well nourished Orientation/consciousness: patient oriented x3 Limitations: no limitations HENMT Head: Yes normal to inspection Eyes General: appearance normal, both eyes and all related structures Neck Neck: Yes normal visual inspection Chest Chest palpation & inspection: normal palpation of entire chest wall Resp Effort & Inspection: normal respiratory effort Neuro General: patient oriented x3 Coding Level of Care Code Est Pt Prev Care 40-64y(21832) Diagnoses SHAHRIAR on CPAP G47.33; Z99.89 Generalized anxiety disorder F41.1 Hypercholesterolemia E78.00 Essential hypertension I10 Coronary artery disease due to lipid rich plaque I25.10; I25.83 Annual physical exam Z00.00 Assessment & Plan Assessment & Plan (1) SHAHRIAR on CPAP: Comment: KNOWN CASE OF SHAHRIAR AND HAS BEEN VERY COMPLIANT, PRESSURE 6- 16 CMs FULL FACE MASK . NO ISSUES WITH THE USE OF CPAP, EXCEPT THAT ON CERTAIN NIGHTS IT SHUTS OFF AFTER BEING USED FOR A FEW HOURS Code(s): G47.33 - Obstructive sleep apnea (adult) (pediatric); Z99.89 - Dependence on other enabling machines and devices Category: Medical Plan: Await supplies. Once patient starts using the machine, he can increase the dosage on Seroquel. (2) Generalized anxiety disorder: Code(s): F41.1 - Generalized anxiety disorder Category: Medical Plan: Patient sees a psychiatrist/therapist in [place]. Details are not available. Patient reports that this provider is able to prescribed medications. He has an appointment in the next few days. (3) Hypercholesterolemia: Code(s): E78.00 - Pure hypercholesterolemia, unspecified Category: Medical Plan: Blood work reviewed. LDL in range. Continue statins at same dosage. (4) Essential hypertension: Code(s): I10 - Essential (primary) hypertension Category: Medical Plan: Blood pressure is in range. Continue medications at same dosage. (5) Coronary artery disease due to lipid rich plaque: Code(s): I25.10 - Atherosclerotic heart disease of [place] coronary artery without angina pectoris; I25.83 - Coronary atherosclerosis due to lipid rich plaque Category: Medical Plan: Condition is stable. (6) Annual physical exam: Code(s): Z00.00 - Encounter for general adult medical examination without abnormal findings Plan: Up-to-date on screening colonoscopy. Patient has received flu and COVID vaccine.
== END 2024-03-02 08:10 | disposition home or self-care (01) ==
PROVIDERS: PCP Internal Medicine; Visit Provider Internal Medicine
DX: G47.33 Obstructive sleep apnea (adult) (pediatric) (principal); Z99.89 Dependence on other enabling machines and devices; F41.1 Generalized anxiety disorder; E78.00 Pure hypercholesterolemia, unspecified; I10 Essential (primary) hypertension; I25.10 Atherosclerotic heart disease of native coronary artery without angina pectoris; I25.83 Coronary atherosclerosis due to lipid rich plaque; Z00.00 Encounter for general adult medical examination without abnormal findings

== ENCOUNTER → 2024-03-02 07:41 | Outpatient (BNVA) | payer OTHER, SELFPAY | PROVIDERS: PCP Internal Medicine; Visit Provider Internal Medicine | DX: Z00.00 Encounter for general adult medical examination without abnormal findings (principal); G47.33 Obstructive sleep apnea (adult) (pediatric); F41.1 Generalized anxiety disorder; E78.00 Pure hypercholesterolemia, unspecified; I10 Essential (primary) hypertension; I25.10 Atherosclerotic heart disease of native coronary artery without angina pectoris; Z99.89 Dependence on other enabling machines and devices | CPT/HCPCS: 99396 ==

== ENCOUNTER 2024-04-14 13:28 | Outpatient (AMB) | payer OTHER, SELFPAY ==
[2024-04-14 13:31] VITALS: BP 102/68; PULSE 94; O2SAT 94; BMI 27.5
--- NOTE | 2024-04-14 13:31 | A.OFFVIS_ITS ---
Vital Signs 04/14/24 13:31 Height 5 ft 8 in Weight 180 lb 12.465 oz BMI 27.5 BP 102/68 Blood Pressure Location Lt brachial Position Sitting Pulse 94 Pulse Source Pulse Oximeter Pulse Oximetry (%) 94 Oxygen Delivery Method Room Air Intake Visit Reasons: copd Intake Note: pt is here for follow up and states he is feeling down as usual, anxiety, sleeping is tuff at times, not doing well with cpap. 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 HE IS BEING FOLLOWED FOR CHRONIC ALLERGIC RHINITIS AND OBSTRUCTIVE SLEEP APNEA. THE ALLERGIC RHINITIS REMAINS UNDER GOOD CONTROL EXCEPT FOR INTERMITTENT BOUTS OF NASAL CONGESTION AND SOME POSTNASAL DRIP. HE USES FLONASE 1 SPRAY IN EACH NOSTRIL DAILY. DENIES ANY BOUTS OF COUGH OR WHEEZING. HE IS A KNOWN CASE OF OBSTRUCTIVE SLEEP APNEA WHICH IS BEING TREATED WITH CPAP. HE IS USING CPAP EVERY NIGHT EXCEPT FOR A FEW NIGHTS DURING THE MONTH HE MISSES USING WHEN HE HAS NASAL CONGESTION. THAT NIGHT HE KEEPS THE MASK ON FOR AT LEAST 4-5 HOURS AND THEN IF HE GOES TO THE BATHROOM AND COMES BACK THEN HE DOES NOT PUT ON THE CPAP. OVERALL HE IS SLEEPING WELL AND DENIES DAYTIME SLEEPINESS. [facility] Medical History Pain in joint involving multiple sites Bilateral hand swelling Allergic rhinitis SHAHRIAR on CPAP Generalized anxiety disorder Hypercholesterolemia Essential hypertension Osteoarthritis of right hip Coronary artery disease due to lipid rich plaque Surgical History History of colonoscopy (~02/25/19) History of prostate surgery History of repair of rotator cuff History of hemorrhoidectomy Family History Father No problems noted. Mother No problems noted. Sister Anemia Arthritis Sister Arthritis Social History Household Members: Spouse Housing: Apartment Alcohol intake: former Year quit: 20y Patient Tobacco Use Status: Former Tobacco user (30 years ago) Tobacco use type: Cigarette e-Cigarette/Vaping Use: Never Used Second Hand Smoke Exposure: No service: No Current occupational status: disabled Cognitive needs: No Hearing needs: No Vision needs: Yes (Glasses) Review of Systems Const All systems reviewed & are unremarkable except as noted in HPI and below Eyes Reports no additional complaints ENT Reports nasal congestion (Only mild once in a while) Card Denies chest pain, Denies irregular heart rhythm, Denies leg edema and Denies dyspnea Resp Denies cough, Denies dyspnea and Denies wheezing GI Reports dyspepsia (Chronic nonspecific) and Reports heartburn Reports no additional complaints Musc Reports myalgias (Chronic due to arthritis) Skin/Breast Reports system reviewed and no additional complaints, except as documented Neuro Reports no additional complaints Psych Reports anxiety (Controlled with medicine) Aller/Immun Denies wheezing Physical Exam Vital Signs: Last Vital Signs Pulse 94 04/14/24 13:31 BP 102/68 04/14/24 13:31 Pulse Ox 94 04/14/24 13:31 Oxygen Delivery Method Room Air 04/14/24 13:31 BMI result Body Mass Index 27.5 Const General: healthy appearing, comfortable, no acute distress, alert and awake Orientation/consciousness: patient oriented x3 HEENT Head: Yes normal to inspection General nose exam: No nasal polyps present, No nasal discharge present and Other nasal findings present (MILD NASAL CONGESTION) Face and sinus: Yes sinuses nontender Mouth: oropharynx normal Teeth and gingiva: other (HE HAS PROMINENT RETROGANTHIA OF THE LOWER JAW) Throat: Yes posterior oropharynx normal Eyes General: appearance normal, both eyes and all related structures Neck Neck: Yes normal visual inspection, Yes no lymphadenopathy, Yes trachea midline and Yes no JVD Thyroid: Thyroid normal Chest Chest palpation & inspection: normal inspection of the chest, normal palpation of entire chest wall and no tenderness Resp Effort & Inspection: normal respiratory effort Auscultation: clear to auscultation bilaterally, no crackles and no wheezes Cardio Palpation: normal PMI Rate: regular rate Rhythm: regular rhythm Heart sounds: no gallops and no murmurs Peripheral pulses: Peripheral pulses 2+ throughout GI Palpation (GI): Soft to palpation, nontender, No hepatosplenomegaly present and no masses Auscultation: normal bowel sounds Back/Spine/Pelvis Thoracic/Lumbar Spine: thoracic and lumbar spine normal to inspection Skin General skin exam: no rashes or lesions noted Neuro General: patient oriented x3 and no focal motor deficits Cranial nerves: Yes CN's II-XII intact bilaterally Extrem General: Yes normal to inspection, Yes no clubbing, cyanosis or edema and Yes no calf tenderness Psych Appearance: grossly normal and well kempt Speech and movement: Normal speech and movement present Results Reviewed Results Reviewed: COMPLIANCE REPORT FOR THE LAST 30 NIGHTS IS REVIEWED HE HAS USED 24/30 NIGHTS, 80%. MISSED. 6 NIGHTS BECAUSE OF NASAL CONGESTION AVERAGE USE IT PER NIGHT IS 4 HOURS 53 MINUTES. RESIDUAL AHI 3.1 Assessment & Plan Assessment & Plan (1) SHAHRIAR on CPAP: Comment: KNOWN CASE OF SHAHRIAR AND HAS BEEN VERY COMPLIANT, PRESSURE 6- 16 CMs FULL FACE MASK . NO ISSUES WITH THE USE OF CPAP, EXCEPT THAT ON CERTAIN NIGHTS , HE HAS DIFFICULTY IN USING BECAUSE OF NASAL CONGESTION. Code(s): G47.33 - Obstructive sleep apnea (adult) (pediatric); Z99.89 - Dependence on other enabling machines and devices Category: Medical Plan: CONTINUE TO USE EVERY NIGHT IF POSSIBLE FOR AT LEAST 5 HOURS PER NIGHT. (2) Allergic rhinitis: Comment: HE HAS MILD CHRONIC ALLERGIC RHINITIS. WELL CONTROLLED WITH USE OF FLONASE 2 SPRAY IN EACH NOSTRIL DAILY. Code(s): J30.9 - Allergic rhinitis, unspecified Category: Medical Plan: CONTINUE TO USE FLONASE -50 2 SPRAYS IN EACH NOSTRIL DAILY Coding Level of Care Code Est Pt Level 3 (57678) Diagnoses SHAHRIAR on CPAP G47.33; Z99.89 Allergic rhinitis J30.9
== END 2024-04-14 13:57 | disposition home or self-care (01) ==
PROVIDERS: PCP Internal Medicine; Visit Provider Internal Medicine
DX: G47.33 Obstructive sleep apnea (adult) (pediatric) (principal); Z99.89 Dependence on other enabling machines and devices; J30.9 Allergic rhinitis, unspecified
CPT/HCPCS: 99213

== ENCOUNTER → 2024-04-14 13:28 | Outpatient (BNVA) | payer OTHER, SELFPAY | PROVIDERS: PCP Internal Medicine; Visit Provider Internal Medicine | DX: J30.9 Allergic rhinitis, unspecified (principal); G47.33 Obstructive sleep apnea (adult) (pediatric); Z99.89 Dependence on other enabling machines and devices | CPT/HCPCS: 99212 ==

== ENCOUNTER 2024-09-01 07:44 | Outpatient (AMB) | payer OTHER, SELFPAY ==
[2024-09-01 07:50] VITALS: BP 126/72; PULSE 93; RESP 18; TEMP 36.3; O2SAT 96; BMI 27.2
--- NOTE | 2024-09-01 07:50 | MHC.PC.OV ---
Vital Signs 09/01/24 07:50 Height 5 ft 8 in Weight 179 lb 3.2 oz BMI 27.2 BP 126/72 Blood Pressure Location Lt brachial Position Sitting Respiration 18 Pulse 93 Pulse Source Pulse Oximeter Temp 97.3 F Temp Source Temporal Artery Scan Pulse Oximetry (%) 96 Oxygen Delivery Method Room Air Intake Visit Reasons: cholesterol f/u Manual Lathe Operator Required: No Accompanied by: Self / Same As Patient Allergies No Known Allergies Allergy (Verified 09/01/24 08:18) Medication List - Last Reconciled 09/01/24 by Deng Roberts MD buspirone 10 mg PO BID enalapril maleate 10 mg PO DAILY fluticasone propionate 50 mcg/actuation 1 spray intranasal DAILY quetiapine 50 mg PO BEDTIME rosuvastatin 10 mg PO DAILY venlafaxine ER 75 mg PO DAILY venlafaxine ER 150 mg PO DAILY Tobacco use date assessed: 09/01/24 Dental Screening Dental Screen Date: 09/01/24 Did you have a dental visit in the last 12 months?: No Did you have a dental problem in the last 6 months where you did not have access to dental care?: No Was dental information given to patient?: No [facility] Medical History (Updated 09/01/24 @ 08:20 by Deng Roberts MD) Major depression in remission Pain in joint involving multiple sites Bilateral hand swelling Allergic rhinitis SHAHRIAR on CPAP Generalized anxiety disorder Hypercholesterolemia Essential hypertension Osteoarthritis of right hip Coronary artery disease due to lipid rich plaque Surgical History History of colonoscopy (~02/25/19) History of prostate surgery History of repair of rotator cuff History of hemorrhoidectomy Family History Father No problems noted. Mother No problems noted. Sister Anemia Arthritis Sister Arthritis Social History Household Members: Spouse Housing: Apartment Alcohol intake: former Year quit: 20y Patient Tobacco Use Status: Former Tobacco user (30 years ago) Tobacco use type: Cigarette e-Cigarette/Vaping Use: Never Used Second Hand Smoke Exposure: No service: No Current occupational status: disabled Cognitive needs: No Hearing needs: No Vision needs: Yes (Glasses) Questionnaire Thrive Questionnaire Date Thrive assessed: 09/01/24 I am a: Patient What is your living situation today?: I have a steady place to live Within the past 12 months, did the food you bought not last and you didn't have the money to get more?: Never true Within the past 12 months, did you worry whether your food would run out before you got money to buy more?: Never true Do you have trouble paying for medicines?: No Do you have trouble getting transportation to medical appointments?: No Do you have trouble paying your heating and electricity bill?: No Do you have trouble taking care of your child, family member or friend?: No Do you have trouble with day-to-day activities such as bathing, preparing meals, shopping, managing finances, etc.?: No Are you currently unemployed and looking for a job?: No Are you interested in more education?: No Please select the resources that you would like help with: None Currently or been in a relationship where the following occur: I choose not to answer THRIVE Score: 0 AUDIT C Alcohol Use Questionnaire (AUDIT-C) 1. How often do you have a drink containing alcohol?: Never 3. How often do you have six or more drinks on one occasion?: Never Total Score: 0 Score Reviewed/Action Taken: No SEBASTIAN-7 AMB Questionnaire SEBASTIAN-7 Date SEBASTIAN - 7 assessed: 03/02/24 Source: Developed by Drs. Antonio Ott, Sravanthi Kowalski, Jeramy Holland and colleagues, with an educational keara from [employer]. Physical exam (Primary Care) Vital Signs: Last Vital Signs Temp 97.3 F 09/01/24 07:50 Pulse 93 09/01/24 07:50 Resp 18 09/01/24 07:50 BP 126/72 09/01/24 07:50 Pulse Ox 96 09/01/24 07:50 Oxygen Delivery Method Room Air 09/01/24 07:50 Care Plan Goal for BP management: BP in range. BMI result Body Mass Index 27.2 Tobacco/Smoking Status: Tobacco use Status Tobacco use date assessed 09/01/24 09/01/24 07:59 Patient Tobacco Use Status Former Tobacco user (30 09/01/24 07:59 years ago) Tobacco use type Cigarette 09/01/24 07:59 e-Cigarette/Vaping Use Never Used 09/01/24 07:59 Thrive Assessment: Date of Thrive Assessment Date Thrive assessed 09/01/24 09/01/24 07:59 Currently or been in a relationship where the following occur: I choose not to answer Coding Level of Care Code Est Pt Level 4 (53332) Complex EM visit Add On G2211 Diagnoses Major depression in remission F32.5 Essential hypertension I10 Allergic rhinitis J30.9 Assessment & Plan Assessment & Plan (1) Major depression in remission: Code(s): F32.5 - Major depressive disorder, single episode, in full remission Category: Medical Plan: Patient has a psychiatrist. Condition not well controlled. Has episodes of melancholy. On multiple meds. Has an appt to see a therapist. (2) Essential hypertension: Code(s): I10 - Essential (primary) hypertension Category: Medical Plan: Blood pressure is in range. Continue current meds (3) Allergic rhinitis: Comment: HE HAS MILD CHRONIC ALLERGIC RHINITIS. WELL CONTROLLED WITH USE OF FLONASE 2 SPRAY IN EACH NOSTRIL DAILY. Code(s): J30.9 - Allergic rhinitis, unspecified Category: Medical Plan: Singulair added to the regimen Plan History of Present Illness The patient is a 64-year-old male presenting with management of depression and associated symptoms. He has been diagnosed with major depressive disorder and is currently on venlafaxine, prescribed in a dosage of 150 mg plus 75 mg. The patient receives treatment and medication adjustments from a doctor in [place]. His depression remains a pressing concern affecting his quality of life. Accompanying this, the patient experiences insomnia and takes Seroquel to facilitate better sleep patterns. He admits to sleeping only sort of well. The history of obstructive sleep apnea is notable, though the treatment, which involved a reading device, has been discontinued by the patient due to ineffectiveness as per his reported experience. He seeks further assistance in managing his depression and has requested help for potential therapy referral. Social History - and lives with his . - Attends alevism activities. - Drives, including at night. - Currently waiting for a referral for therapy to manage depression. Review of Systems - Psychiatric: Reports depression; insomnia. - Respiratory: Denies ongoing sleep apnea therapy due to non-efficacy. - ENT: Reports dry and itchy throat. - General/Endocrine: Denies use of alcohol. Physical Exam General: Cooperative and healthy appearing Nutritional Appearance: Well nourished Orientation/consciousness: Patient oriented x3 Limitations: No limitations Head: Normal to inspection General: Appearance normal, both eyes and all related structures Neck: Normal visual inspection Chest: Normal palpation of entire chest wall Respiratory: Normal respiratory effort Neurology: Patient oriented x3 Results Plan The patient's major depressive disorder management will continue with the use of venlafaxine, with regular monitoring and dosage adjustments as required by his attending physician. For insomnia, Seroquel will be continued, and sleep patterns will be observed closely. As obstructive sleep apnea treatment was stopped, this will be monitored for any potential changes or needs for reevaluation. I highly recommend that the patient pursue therapy when the referral becomes available, as it may offer significant benefits for his depression management. The patient will undergo fasting blood work to explore other health concerns, and treatment options for the dry and itchy throat will be offered via a nasal spray prescription. Patient was informed and verbally consented to the use of an ambient scribe for clinic note documentation during this visit. Discussion Notes I discussed the patient's ongoing management of major depressive disorder with the current venlafaxine regimen. I highlighted the importance of continuing therapy and maintaining regular contact with the presiding doctor to optimize treatment outcomes. We reviewed the [id number] effects of Seroquel on sleep, and I urged the patient to await and pursue a promised therapy referral, which may offer effective support for his depression. Furthermore, I explained the patient's cessation of obstructive sleep apnea therapy and confirmed the invalidity of continuing a non-beneficial treatment. Fasting blood work was ordered to evaluate for any additional underlying health issues, and a nasal spray prescription will be provided to address his symptoms of a dry, itchy throat. Patient Instructions - Continue taking venlafaxine as prescribed. - Take Seroquel for sleep as directed. - Await therapy referral for further aid in depression management. - Follow instructions for fasting blood work. - Use the prescribed nasal spray for a dry, itchy throat. - Avoid alcohol consumption. - Report any significant changes in symptoms or concerns immediately.
== END 2024-09-01 08:10 | disposition home or self-care (01) ==
LOC: HO.HMCH 07:45
PROVIDERS: PCP Internal Medicine; Visit Provider Internal Medicine
DX: F32.5 Major depressive disorder, single episode, in full remission (principal); I10 Essential (primary) hypertension; J30.9 Allergic rhinitis, unspecified

== ENCOUNTER → 2024-09-01 07:44 | Outpatient (BNVA) | payer OTHER, SELFPAY | PROVIDERS: PCP Internal Medicine; Visit Provider Internal Medicine | DX: F32.5 Major depressive disorder, single episode, in full remission (principal); I10 Essential (primary) hypertension; J30.9 Allergic rhinitis, unspecified | CPT/HCPCS: 99212 ==

== ENCOUNTER 2024-09-05 06:48 | Outpatient (REF) | payer OTHER, SELFPAY ==
[2024-09-05 07:20] LABS: Hematocrit 47.1 % (42.0-52.0); Hemoglobin 15.8 g/dl (14.0-18.0); Mean Corpuscular HGB Conc 33.5 g/dl (31.0-36.0); Mean Corpuscular Hemoglobin 30.1 pg (27.0-33.0); Mean Corpuscular Volume 89.7 fL (80.0-98.0); Mean Platelet Volume 9.5 fL (9.4-12.4); Platelet Count 227 X10*3/uL (160-400); Red Blood Count 5.25 X10*6/uL (4.60-5.80); Red Cell Distribution Width 12.8 % (11.0-16.0); White Blood Count 6.9 X10*3/uL (4.8-10.8)
[2024-09-05 07:37] LABS: Appearance Urine Clear; Color Urine Yellow; Glucose Urine UA Negative (Negative); Leukocyte Esterase Urine Negative (Negative); Nitrite Urine Negative (Negative); Specific Gravity - Urine 1.025 (1.005-1.025); Urine Blood Negative (Negative); Urine Ketones Trace mg/dL (Negative); Urine Protein Trace mg/dL (Neg-Trace)
[2024-09-05 08:03] LABS: Alanine Aminotransferase 22 U/L (0-40); Albumin Level 4.4 g/dL (3.5-5.0); Alkaline Phosphatase 101 U/L (39-117); Anion Gap 13 (12-20); Aspartate Amino Transferase 25 U/L (5-37); Bilirubin Direct 0.2 mg/dL (0.0-0.5); Bilirubin Total 0.7 mg/dL (0.0-1.0); Blood Urea Nitrogen 16 mg/dL (9-16); Calcium 9.3 mg/dL (8.4-10.2); Carbon Dioxide 26 mmol/L (22-29); Chloride 106 mmol/L (96-108); Cholesterol 225 mg/dL (<200); Estimated Glomerular Filt Rate > 60; Glucose Random 103 mg/dL (60-115); HDL Cholesterol 64 mg/dL (>40); LDL Cholesterol Calculated 140 mg/dL (<100); Potassium 4.4 mmol/L (3.3-5.1); Sodium 141 mmol/L (135-145); Total Protein 7.7 g/dL (6.5-8.0); Triglycerides 109 mg/dL (<150)
[2024-09-05 08:04] LABS: Prostate Specific Antigen Scr 0.44 ng/mL (<0.05-4.0)
[2024-09-05 08:19] LABS: Thyroid Stimulating Hormone 0.98 uIU/mL (0.32-4.0)
== END 2024-09-05 06:49 | disposition home or self-care (01) ==
LOC: HO.LAB 06:48
PROVIDERS: PCP Internal Medicine; Visit Provider Internal Medicine
DX: I10 Essential (primary) hypertension (principal); E78.00 Pure hypercholesterolemia, unspecified; Z12.5 Encounter for screening for malignant neoplasm of prostate
CPT/HCPCS: 36415; 80048; 80061; 80076; 81003; 84153; 84443; 85027

== ENCOUNTER 2024-10-11 13:27 | Outpatient (AMB) | payer OTHER, SELFPAY ==
[2024-10-11 13:32] VITALS: BP 110/62; PULSE 82; O2SAT 96; BMI 27.8
--- NOTE | 2024-10-11 13:32 | A.OFFVIS_ITS ---
Vital Signs 10/11/24 13:32 Height 5 ft 8 in Weight 182 lb 15.739 oz BMI 27.8 BP 110/62 Blood Pressure Location Lt brachial Position Sitting Pulse 82 Pulse Source Pulse Oximeter Pulse Oximetry (%) 96 Oxygen Delivery Method Room Air Intake Visit Reasons: COPD Intake Note: pt is here for follow up and states he is not using cpap, and feeling okay Airline Attendant Required: No Allergies No Known Allergies Allergy (Verified 10/11/24 13:44) Medication List - Last Reconciled 10/11/24 by Mckinley Cooley MD buspirone 10 mg PO BID clonidine HCl 0.1 mg PO BEDTIME enalapril maleate 10 mg PO DAILY fluticasone propionate 50 mcg/actuation 1 spray intranasal DAILY montelukast (Singulair) 10 mg PO BEDTIME quetiapine 50 mg PO BEDTIME rosuvastatin 10 mg PO DAILY venlafaxine ER 75 mg PO DAILY venlafaxine ER 150 mg PO DAILY Do you need a note to return to daycare/school/sports/work: No HPI HPI COPD: Details: This 64 years old gentleman comes after 6 months for follow-up. Allergic rhinitis is under control and he needs to use Flonase 1 spray daily as well as Singulair 10 mg daily Breathing is okay and he does not have any wheezing and also does not need to use any bronchodilator inhaler. He quit using the CPAP claiming that it was actually bothering his sleep. Now he sleeps slightly propped up and in the right lateral position and he sleeps throughout the night without any problems Denies any daytime sleepiness. [facility] Medical History Major depression in remission Pain in joint involving multiple sites Bilateral hand swelling Allergic rhinitis SHAHRIAR on CPAP Generalized anxiety disorder Hypercholesterolemia Essential hypertension Osteoarthritis of right hip Coronary artery disease due to lipid rich plaque Surgical History History of colonoscopy (~02/25/19) History of prostate surgery History of repair of rotator cuff History of hemorrhoidectomy Family History Father No problems noted. Mother No problems noted. Sister Anemia Arthritis Sister Arthritis Social History Household Members: Spouse Housing: Apartment Alcohol intake: former Year quit: 20y Patient Tobacco Use Status: Former Tobacco user (30 years ago) Tobacco use type: Cigarette e-Cigarette/Vaping Use: Never Used Second Hand Smoke Exposure: No service: No Current occupational status: disabled Cognitive needs: No Hearing needs: No Vision needs: Yes (Glasses) Review of Systems Const All systems reviewed & are unremarkable except as noted in HPI and below Eyes Reports no additional complaints ENT Reports nasal congestion (Only mild once in a while) Card Denies chest pain, Denies irregular heart rhythm, Denies leg edema and Denies dyspnea Resp Denies cough, Denies dyspnea and Denies wheezing GI Reports dyspepsia (Chronic nonspecific) and Reports heartburn Reports no additional complaints Musc Reports myalgias (Chronic due to arthritis) Skin/Breast Reports system reviewed and no additional complaints, except as documented Neuro Reports no additional complaints Psych Reports anxiety (Controlled with medicine) Aller/Immun Denies wheezing Physical Exam Vital Signs: Last Vital Signs Pulse 82 10/11/24 13:32 BP 110/62 10/11/24 13:32 Pulse Ox 96 10/11/24 13:32 Oxygen Delivery Method Room Air 10/11/24 13:32 BMI result Body Mass Index 27.8 Const General: healthy appearing, comfortable, no acute distress, alert and awake Orientation/consciousness: patient oriented x3 HEENT Head: Yes normal to inspection General nose exam: No nasal polyps present, No nasal discharge present and Other nasal findings present (MILD NASAL CONGESTION) Face and sinus: Yes sinuses nontender Mouth: oropharynx normal Teeth and gingiva: other (HE HAS PROMINENT RETROGNATHIA OF THE LOWER JAW) Throat: Yes posterior oropharynx normal Eyes General: appearance normal, both eyes and all related structures Neck Neck: Yes normal visual inspection, Yes no lymphadenopathy, Yes trachea midline and Yes no JVD Thyroid: Thyroid normal Chest Chest palpation & inspection: normal inspection of the chest, normal palpation of entire chest wall and no tenderness Resp Effort & Inspection: normal respiratory effort Auscultation: clear to auscultation bilaterally, no crackles and no wheezes Cardio Palpation: normal PMI Rate: regular rate Rhythm: regular rhythm Heart sounds: no gallops and no murmurs Peripheral pulses: Peripheral pulses 2+ throughout GI Palpation (GI): Soft to palpation, nontender, No hepatosplenomegaly present and no masses Auscultation: normal bowel sounds Back/Spine/Pelvis Thoracic/Lumbar Spine: thoracic and lumbar spine normal to inspection Skin General skin exam: no rashes or lesions noted Neuro General: patient oriented x3 and no focal motor deficits Cranial nerves: Yes CN's II-XII intact bilaterally Extrem General: Yes normal to inspection, Yes no clubbing, cyanosis or edema and Yes no calf tenderness Psych Appearance: grossly normal and well kempt Speech and movement: Normal speech and movement present Results Reviewed Results Reviewed: Compliance report not available Assessment & Plan Assessment & Plan (1) SHAHRIAR on CPAP: Comment: KNOWN CASE OF SHAHRIAR . SINCE HIS LAST VISIT 6 MONTHS AGO HE STOPPED USING THE CPAP, CLAIMING THAT IT WAS DISTURBING HIS SLEEP. NOW WITHOUT THE CPAP HE SLEEPS BETTER. HE SLEEPS IN A RELATIVELY PROPPED UP POSITION AND IN RIGHT LATERAL POSITION. SLEEPS GOOD FOR AT LEAST 6-7 HOURS PER NIGHT AND DENIES ANY. DAYTIME SLEEPINESS HIS WEIGHT IS UNCHANGED, ACTUALLY PUT ON ABOUT 2 LB OF WEIGHT. Code(s): G47.33 - Obstructive sleep apnea (adult) (pediatric); Z99.89 - Dependence on other enabling machines and devices Category: Medical Plan: ADVISE THAT HE NEEDS TO KEEP HIS WEIGHT UNDER CONTROL. LONG HE SLEEPS GOOD THROUGHOUT THE NIGHT HE CAN CONTINUE WITH THE CONSERVATIVE MEASURES. HE SHOULD TRY TO SLEEP IN LATERAL POSITION ALL THE TIMES. (2) Allergic rhinitis: Comment: HE HAS MILD CHRONIC ALLERGIC RHINITIS. WELL CONTROLLED WITH PRESENT MEDICAL REGIMEN. Code(s): J30.9 - Allergic rhinitis, unspecified Category: Medical Plan: CONTINUE MONTELUKAST 10 MG DAILY. CONTINUE TO USE FLONASE -50 1 SPRAY IN EACH NOSTRIL DAILY Coding Level of Care Code Est Pt Level 3 (90475) Diagnoses SHAHRIAR on CPAP G47.33; Z99.89 Allergic rhinitis J30.9
== END 2024-10-11 13:44 | disposition home or self-care (01) ==
LOC: HO.HPS 13:28
PROVIDERS: PCP Internal Medicine; Visit Provider Internal Medicine
DX: G47.33 Obstructive sleep apnea (adult) (pediatric) (principal); Z99.89 Dependence on other enabling machines and devices; J30.9 Allergic rhinitis, unspecified
CPT/HCPCS: 99213

== ENCOUNTER → 2024-10-11 13:27 | Outpatient (BNVA) | payer OTHER, SELFPAY | PROVIDERS: PCP Internal Medicine; Visit Provider Internal Medicine | DX: J30.9 Allergic rhinitis, unspecified (principal); G47.33 Obstructive sleep apnea (adult) (pediatric); Z99.89 Dependence on other enabling machines and devices | CPT/HCPCS: 99212 ==

== ENCOUNTER 2025-02-02 11:08 | Outpatient (AMB) | payer OTHER, SELFPAY ==
--- NOTE | 2025-02-02 11:29 | MHC.PC.OV ---
Vital Signs 02/02/25 11:30 Height 5 ft 8 in Weight 178 lb BMI 27.1 BP 114/60 Blood Pressure Location Lt brachial Position Sitting Pulse 85 Pulse Source Pulse Oximeter Temp 97.5 F Temp Source Temporal Artery Scan Pulse Oximetry (%) 93 Oxygen Delivery Method Room Air Intake Visit Reasons: follow up Intake Note: Patient is here to follow up on CAD, HTN, Hypercholesterolemia, HLD. Event Executive Required: No Mass Communications Instructor: Not Required per policy Accompanied by: Self / Same As Patient Allergies No Known Allergies Allergy (Verified 02/02/25 11:30) Tobacco use date assessed: 02/02/25 Dental Screening Dental Screen Date: 09/01/24 [facility] Medical History (Updated 02/02/25 @ 11:54 by Deng Roberts MD) Right shoulder strain Major depression in remission Pain in joint involving multiple sites Bilateral hand swelling Allergic rhinitis SHAHRIAR on CPAP Generalized anxiety disorder Hypercholesterolemia Essential hypertension Osteoarthritis of right hip Coronary artery disease due to lipid rich plaque Surgical History History of colonoscopy (~02/25/19) History of prostate surgery History of repair of rotator cuff History of hemorrhoidectomy Family History Father No problems noted. Mother No problems noted. Sister Anemia Arthritis Sister Arthritis Social History Household Members: Spouse Housing: Apartment Alcohol intake: former Year quit: 20y Patient Tobacco Use Status: Former Tobacco user (30 years ago) Tobacco use type: Cigarette e-Cigarette/Vaping Use: Never Used Second Hand Smoke Exposure: Yes service: No Current occupational status: disabled Cognitive needs: No Hearing needs: No Vision needs: Yes (Glasses) Questionnaire PHQ-9 Over the last 2 weeks, how often have you been bothered by any of the following problems? 1. Little interest or pleasure in doing things: several days 2. Feeling down, depressed, or hopeless: several days 3. Trouble falling or staying asleep, or sleeping too much: several days 4. Feeling tired or having little energy: not at all 5. Poor appetite or overeating: not at all 6. Feeling bad about yourself - or that you are a failure or have let yourself or your family down: several days 7. Trouble concentrating on things, such as reading the newspaper or watching television: several days 8. Moving or speaking so slowly that other people could have noticed. Or the opposite - being so fidgety or restless that you have been moving around a lot more than usual: not at all 9. Thoughts that you would be better off or of hurting yourself in some way: several days Total score: 6 Depression Screening Interpretation: Positive Depression Screening Done: Yes Source: Developed by Drs. Antonio Ott, Sravanthi Kowalski, Jeramy Holland and colleagues, with an educational keara from [employer]. Thrive Questionnaire Date Thrive assessed: 09/01/24 I am a: Patient What is your living situation today?: I have a steady place to live Within the past 12 months, did the food you bought not last and you didn't have the money to get more?: Never true Within the past 12 months, did you worry whether your food would run out before you got money to buy more?: Never true Do you have trouble paying for medicines?: No Do you have trouble getting transportation to medical appointments?: No Do you have trouble paying your heating and electricity bill?: No Do you have trouble taking care of your child, family member or friend?: No Do you have trouble with day-to-day activities such as bathing, preparing meals, shopping, managing finances, etc.?: No Are you currently unemployed and looking for a job?: I choose not to answer this question Are you interested in more education?: I choose not to answer this question Please select the resources that you would like help with: Food Currently or been in a relationship where the following occur: No concerns reported THRIVE Score: 0 AUDIT C Alcohol Use Questionnaire (AUDIT-C) 1. How often do you have a drink containing alcohol?: Never Total Score: 0 SEBASTIAN-7 AMB Questionnaire SEBASTIAN-7 Date SEBASTIAN - 7 assessed: 02/02/25 Feeling nervous, anxious, or on edge: 3 = Nearly every day Not being able to stop or control worryin = Nearly every day Worrying too much about different things: 1 = Several days Trouble relaxin = Several days Being so restless that it is hard to sit still: 1 = Several days Becoming easily annoyed or irritable: 1 = Several days Feeling afraid as if something awful might happen: 3 = Nearly every day Total SEBASTIAN-7 score (0-4 normal; 5-9 mild; 10-14 moderate; 15-21 severe): 13 Source: Developed by Drs. Antonio Ott, Sravanthi Kowalski, Jeramy Holland and colleagues, with an educational keara from [employer]. Physical exam (Primary Care) Vital Signs: Last Vital Signs Temp 97.5 F 02/02/25 11:30 Pulse 85 02/02/25 11:30 BP 114/60 02/02/25 11:30 Pulse Ox 93 02/02/25 11:30 Oxygen Delivery Method Room Air 02/02/25 11:30 BMI result Body Mass Index 27.1 Tobacco/Smoking Status: Tobacco use Status Tobacco use date assessed 02/02/25 02/02/25 11:36 Patient Tobacco Use Status Former Tobacco user (30 02/02/25 11:36 years ago) Tobacco use type Cigarette 02/02/25 11:36 e-Cigarette/Vaping Use Never Used 02/02/25 11:36 PHQ-9: PHQ-9 Score PHQ-9: Total score 6 02/02/25 11:36 Depression Screening Interpretation: Positive Thrive Assessment: Date of Thrive Assessment Date Thrive assessed 09/01/24 02/02/25 11:36 Currently or been in a relationship where the following occur: No concerns reported Coding Level of Care Code Est Pt Level 4 (80240) Complex EM visit Add On G2211 Diagnoses Right shoulder strain S46.911A Assessment & Plan Assessment & Plan (1) Right shoulder strain: Code(s): S46.911A - Strain of unspecified muscle, fascia and tendon at shoulder and upper arm level, right arm, initial encounter Category: Medical Plan: History of Present Illness - The patient is a 65-year-old male presenting with right arm pain and anxiety and depression. - Right arm pain began approximately three weeks ago after the patient nearly fell while carrying an object down the stairs. - The pain persists, especially with movement, and the patient is unable to carry anything with the right arm. - The patient has a history of rotator cuff surgery on the same arm, which still causes some pain and limits lifting ability. - Anxiety and depression are ongoing issues for which the patient is currently taking medication and seeing a psychiatrist. - The patient expressed a desire for therapy and mentioned a lack of current therapy sessions despite discussing it with the psychiatrist a month ago. Social History Review of Systems - Musculoskeletal: Reports right arm pain with movement, unable to carry objects. - Psychiatric: Reports ongoing anxiety and depression, currently on medication. Physical Exam General: Cooperative and healthy appearing Nutritional Appearance: Well nourished Orientation/consciousness: Patient oriented x3 Limitations: No limitations Head: Normal to inspection General: Appearance normal, both eyes and all related structures Neck: Normal visual inspection Chest: Normal palpation of entire chest wall Respiratory: Normal respiratory effort Neurology: Patient oriented x3 Results Plan - An x-ray of the right shoulder is to be performed to assess for any underlying issues. - The patient will be provided with an arm sling to use for a few days to aid in pain management. - Referral to behavioral therapy will be arranged to address the patient's desire for therapy sessions. Discussion Notes I discussed with the patient the need for an x-ray of the right shoulder to evaluate the cause of the persistent pain. We also talked about using an arm sling for support and pain relief. Additionally, I will arrange for a referral to behavioral therapy to address the patient's ongoing mental health needs and desire for therapy sessions. Patient Instructions - Get an x-ray of your right shoulder today. - Use the arm sling as instructed for a few days to help with pain. - Follow up with the psychiatrist and attend behavioral therapy sessions once arranged.
[2025-02-02 11:30] VITALS: BP 114/60; PULSE 85; TEMP 36.4; O2SAT 93; BMI 27.1
== END 2025-02-02 12:49 | disposition home or self-care (01) ==
LOC: HO.HMCH 11:09
PROVIDERS: PCP Internal Medicine; Visit Provider Internal Medicine
DX: S46.911A Strain of unspecified muscle, fascia and tendon at shoulder and upper arm level, right arm, initial encounter (principal)

== ENCOUNTER → 2025-02-02 11:08 | Outpatient (BNVA) | payer OTHER, SELFPAY | PROVIDERS: PCP Internal Medicine; Visit Provider Internal Medicine | DX: S46.911A Strain of unspecified muscle, fascia and tendon at shoulder and upper arm level, right arm, initial encounter (principal); F41.9 Anxiety disorder, unspecified; F32.9 Major depressive disorder, single episode, unspecified; Z13.31 Encounter for screening for depression; Z13.39 Encounter for screening examination for other mental health and behavioral disorders | CPT/HCPCS: 96127; 99212 ==

== ENCOUNTER 2025-02-03 08:30 | Outpatient (REF) | payer OTHER, SELFPAY ==
--- NOTE | ~2025-02-03 | XR_ITS ---
EXAMINATION: XR SHOULDER, RIGHT CLINICAL INFORMATION: S43.401A - Unspecified sprain of right shoulder joint, initial encounter COMPARISON: Correlated to chest x-ray dated February 05, 2023 TECHNIQUE: AP external rotation, Grashey, scapular Y, and axillary views of the right shoulder. FINDINGS: Sclerosis and subchondral cyst formation along the margins of the acromioclavicular joint and the greater tuberosity of the humerus. No acute cortical disruption or malalignment. No soft tissue calcifications. No lytic or blastic lesions. XR/XR shoulder RT min 2V IMPRESSION: Degenerative changes, acromioclavicular joint and at the supraspinatus tendon/rotator cuff tendon insertion site. Electronically signed by: Miguel Ángel Astorga MD 02/03/2025 08:58 AM EDT
== END 2025-02-03 08:31 | disposition home or self-care (01) ==
LOC: HO.XRAY 08:30
PROVIDERS: PCP Internal Medicine; Visit Provider Internal Medicine
DX: S43.401A Unspecified sprain of right shoulder joint, initial encounter (principal)
CPT/HCPCS: 73030

== ENCOUNTER → 2025-02-03 08:34 | Outpatient (BNV) | payer OTHER, SELFPAY | PROVIDERS: PCP Internal Medicine; Visit Provider Radiology Diagnostic Radiology | DX: S49.91XA Unspecified injury of right shoulder and upper arm, initial encounter (principal); M19.011 Primary osteoarthritis, right shoulder; W10.8XXA Fall (on) (from) other stairs and steps, initial encounter | CPT/HCPCS: 73030 ==

== ENCOUNTER 2025-03-09 07:47 | Outpatient (AMB) | payer OTHER, SELFPAY ==
[2025-03-09 08:04] VITALS: BP 122/76; PULSE 83; O2SAT 95; BMI 27.4
--- NOTE | 2025-03-09 08:04 | MHC.PC.OV ---
Vital Signs 03/09/25 08:04 Height 5 ft 8 in Weight 180 lb BMI 27.4 BP 122/76 Blood Pressure Location Lt brachial Position Sitting Pulse 83 Pulse Source Pulse Oximeter Pulse Oximetry (%) 95 Oxygen Delivery Method Room Air Intake Visit Reasons: PE Allergies No Known Allergies Allergy (Verified 03/09/25 08:04) Tobacco use date assessed: 02/02/25 Dental Screening Dental Screen Date: 09/01/24 FORMERLY [facility], [facility] Medical History (Updated 02/02/25 @ 11:54 by Deng Roberts MD) Right shoulder strain Major depression in remission Pain in joint involving multiple sites Bilateral hand swelling Allergic rhinitis SHAHRIAR on CPAP Generalized anxiety disorder Hypercholesterolemia Essential hypertension Osteoarthritis of right hip Coronary artery disease due to lipid rich plaque Surgical History History of colonoscopy (~02/25/19) History of prostate surgery History of repair of rotator cuff History of hemorrhoidectomy Family History Father No problems noted. Mother No problems noted. Sister Anemia Arthritis Sister Arthritis Social History Household Members: Spouse Housing: Apartment Alcohol intake: former Year quit: 20y Patient Tobacco Use Status: Former Tobacco user (30 years ago) Tobacco use type: Cigarette e-Cigarette/Vaping Use: Never Used Second Hand Smoke Exposure: Yes service: No Current occupational status: disabled Cognitive needs: No Hearing needs: No Vision needs: Yes (Glasses) Questionnaire PHQ-9 Over the last 2 weeks, how often have you been bothered by any of the following problems? 1. Little interest or pleasure in doing things: several days 2. Feeling down, depressed, or hopeless: several days 3. Trouble falling or staying asleep, or sleeping too much: several days 4. Feeling tired or having little energy: not at all 5. Poor appetite or overeating: not at all 6. Feeling bad about yourself - or that you are a failure or have let yourself or your family down: several days 7. Trouble concentrating on things, such as reading the newspaper or watching television: several days 8. Moving or speaking so slowly that other people could have noticed. Or the opposite - being so fidgety or restless that you have been moving around a lot more than usual: not at all 9. Thoughts that you would be better off or of hurting yourself in some way: several days Total score: 6 Depression Screening Interpretation: Positive Depression Screening Done: Yes Source: Developed by Drs. Antonio Ott, Sravanthi Kowalski, Jeramy Holland and colleagues, with an educational keara from [employer]. Thrive Questionnaire Date Thrive assessed: 02/02/25 I am a: Patient What is your living situation today?: I have a steady place to live Within the past 12 months, did the food you bought not last and you didn't have the money to get more?: Never true Within the past 12 months, did you worry whether your food would run out before you got money to buy more?: Never true Do you have trouble paying for medicines?: No Do you have trouble getting transportation to medical appointments?: No Do you have trouble paying your heating and electricity bill?: No Do you have trouble taking care of your child, family member or friend?: No Do you have trouble with day-to-day activities such as bathing, preparing meals, shopping, managing finances, etc.?: No Are you currently unemployed and looking for a job?: I choose not to answer this question Are you interested in more education?: I choose not to answer this question Please select the resources that you would like help with: Food Currently or been in a relationship where the following occur: No concerns reported THRIVE Score: 0 SEBASTIAN-7 AMB Questionnaire SEBASTIAN-7 Date SEBASTIAN - 7 assessed: 02/02/25 Source: Developed by Drs. Antonio Ott, Sravanthi Kowalski, Jeramy Holland and colleagues, with an educational keara from [employer]. Physical exam (Primary Care) Vital Signs: Last Vital Signs Pulse 83 03/09/25 08:04 BP 122/76 03/09/25 08:04 Pulse Ox 95 03/09/25 08:04 Oxygen Delivery Method Room Air 03/09/25 08:04 BMI result Body Mass Index 27.4 Tobacco/Smoking Status: Tobacco use Status Tobacco use date assessed 02/02/25 03/09/25 08:09 Patient Tobacco Use Status Former Tobacco user (30 03/09/25 08:09 years ago) Tobacco use type Cigarette 03/09/25 08:09 e-Cigarette/Vaping Use Never Used 03/09/25 08:09 PHQ-9: PHQ-9 Score PHQ-9: Total score 6 03/09/25 08:09 Depression Screening Interpretation: Positive Thrive Assessment: Date of Thrive Assessment Date Thrive assessed 02/02/25 03/09/25 08:09 Currently or been in a relationship where the following occur: No concerns reported Coding Level of Care Code Est Pt Prev Care 40-64y(12351) Diagnoses Essential hypertension I10 Major depression in remission F32.5 Right shoulder strain S46.911A Annual physical exam Z00.00 Assessment & Plan Assessment & Plan (1) Essential hypertension: Code(s): I10 - Essential (primary) hypertension Category: Medical Plan: BP in range. Continue current med (2) Major depression in remission: Code(s): F32.5 - Major depressive disorder, single episode, in full remission Category: Medical Plan: Patient sees a psychiatrist (3) Right shoulder strain: Code(s): S46.911A - Strain of unspecified muscle, fascia and tendon at shoulder and upper arm level, right arm, initial encounter Category: Medical Plan: X ray shows DJD. Orthopedic appt made (4) Annual physical exam: Code(s): Z00.00 - Encounter for general adult medical examination without abnormal findings Plan: History of Present Illness - The patient is a 65-year-old male presenting for a physical examination and management of shoulder pain. - Degenerative changes in the shoulder: The patient reports shoulder pain with degenerative changes noted on an x-ray. - The pain is severe enough to disrupt sleep, and the patient has attempted massage therapy with limited relief. - The patient is awaiting physical therapy and has been advised to see orthopedics for further management. - Anxiety and depression: The patient reports ongoing anxiety and depression but is not currently seeing a therapist. - The patient has been prescribed medication for anxiety but feels the dosage may be too high, causing stomach upset. - Preventative care: The patient is up to date on flu vaccination and has had a colonoscopy more than five years ago. Social History Review of Systems - Musculoskeletal: Reports shoulder pain disrupting sleep. - Psychological: Reports anxiety and depression. Denies current therapy sessions. Physical Exam General: Cooperative and healthy appearing Nutritional Appearance: Well nourished Orientation/consciousness: Patient oriented x3 Limitations: No limitations Head: Normal to inspection General: Appearance normal, both eyes and all related structures Neck: Normal visual inspection Chest: Normal palpation of entire chest wall Respiratory: Breath sounds normal, no pain reported. ormal respiratory effort Neurology: Patient oriented x3, reports anxiety and depression, currently not seeing a therapist. Concerns about current anxiety medication dosage (300 mg) causing stomach upset. Results - Imaging: X-ray shows degenerative changes in the shoulder. Plan - Refer to orthopedics for potential injection therapy for shoulder pain management. - Initiate physical therapy as a stepwise approach to shoulder pain management. - Order blood work to assess overall health status. - Discuss medication dosage with the prescribing physician to address stomach upset related to anxiety medication. Discussion Notes I discussed with the patient the degenerative changes in his shoulder and the need for a referral to orthopedics for potential injection therapy. We also talked about the importance of starting physical therapy as part of a stepwise approach to manage his shoulder pain. I advised him to complete his blood work to monitor his overall health. Additionally, we discussed his anxiety medication dosage, and I recommended he speak with his prescribing physician to adjust the dosage to alleviate his stomach upset. Patient Instructions - Follow up with orthopedics for shoulder pain management. - Begin physical therapy as scheduled. - Complete blood work as ordered. - Discuss anxiety medication dosage with your prescribing physician. Orders: Orders Lipid Panel Today I10 - Essential (primary) hypertension UA and rflx microscopic Today I10 - Essential (primary) hypertension Basic Metabolic Panel Today I10 - Essential (primary) hypertension Complete Blood Count no Diff Today I10 - Essential (primary) hypertension Liver Panel Today I10 - Essential (primary) hypertension Thyroid Stimulating Hormone Today I10 - Essential (primary) hypertension
== END 2025-03-09 08:23 | disposition home or self-care (01) ==
LOC: HO.HMCH 07:48
PROVIDERS: PCP Internal Medicine; Visit Provider Internal Medicine
DX: Z00.00 Encounter for general adult medical examination without abnormal findings (principal); I10 Essential (primary) hypertension; F32.5 Major depressive disorder, single episode, in full remission; S46.911A Strain of unspecified muscle, fascia and tendon at shoulder and upper arm level, right arm, initial encounter

== ENCOUNTER → 2025-03-09 07:47 | Outpatient (BNVA) | payer OTHER, SELFPAY | PROVIDERS: PCP Internal Medicine; Visit Provider Internal Medicine | DX: Z00.00 Encounter for general adult medical examination without abnormal findings (principal); I10 Essential (primary) hypertension; F32.5 Major depressive disorder, single episode, in full remission; F41.9 Anxiety disorder, unspecified; S46.911A Strain of unspecified muscle, fascia and tendon at shoulder and upper arm level, right arm, initial encounter; X58.XXXA Exposure to other specified factors, initial encounter; Y93.9 Activity, unspecified; Y92.9 Unspecified place or not applicable; Y99.9 Unspecified external cause status | CPT/HCPCS: 96127; 99396 ==

== ENCOUNTER 2025-03-10 07:32 | Outpatient (REF) | payer OTHER, SELFPAY ==
[2025-03-10 08:38] LABS: Hematocrit 44.6 % (42.0-52.0); Hemoglobin 15.0 g/dl (14.0-18.0); Mean Corpuscular HGB Conc 33.6 g/dl (31.0-36.0); Mean Corpuscular Hemoglobin 30.0 pg (27.0-33.0); Mean Corpuscular Volume 89.2 fL (80.0-98.0); NRBC Abs Auto 0.000 X10*3/uL (0.0-0.012); NRBC Pct Auto 0.0 /100WBC (0.0-0.2); Platelet Count 245 X10*3/uL (160-400); Red Blood Count 5.00 X10*6/uL (4.60-5.80); White Blood Count 7.6 X10*3/uL (4.8-10.8)
[2025-03-10 08:41] LABS: Appearance Urine Clear; Glucose Urine UA Negative (Negative); PH 7.5 (5.0-9.0); Specific Gravity - Urine 1.015 (1.005-1.025)
[2025-03-10 09:10] LABS: Alanine Aminotransferase 19 U/L (0-40); Albumin Level 4.3 g/dL (3.5-5.0); Alkaline Phosphatase 105 U/L (39-117); Anion Gap 12 (12-20); Aspartate Amino Transferase 22 U/L (5-37); Blood Urea Nitrogen 13 mg/dL (9-16); Calcium 9.0 mg/dL (8.4-10.2); Carbon Dioxide 25 mmol/L (22-29); Chloride 107 mmol/L (96-108); Cholesterol 246 mg/dL (<200); Estimated Glomerular Filt Rate > 60; HDL Cholesterol 56 mg/dL (>40); Potassium 4.0 mmol/L (3.3-5.1); Sodium 140 mmol/L (135-145); Total Protein 7.1 g/dL (6.5-8.0); Triglycerides 117 mg/dL (<150)
[2025-03-10 09:17] LABS: Thyroid Stimulating Hormone 0.64 uIU/mL (0.32-4.0)
== END 2025-03-10 07:33 | disposition home or self-care (01) ==
LOC: HO.LAB 07:32
PROVIDERS: PCP Internal Medicine; Visit Provider Internal Medicine
DX: I10 Essential (primary) hypertension (principal)
CPT/HCPCS: 36415; 80048; 80061; 80076; 81003; 84443; 85027

== ENCOUNTER 2025-04-11 13:28 | Outpatient (AMB) | payer OTHER, SELFPAY ==
[2025-04-11 13:33] VITALS: BP 120/68; PULSE 88; O2SAT 92; BMI 27.7
--- NOTE | 2025-04-11 13:33 | A.OFFVIS_ITS ---
Vital Signs 04/11/25 13:33 Height 5 ft 8 in Weight 181 lb 14.102 oz BMI 27.7 BP 120/68 Blood Pressure Location Lt brachial Position Sitting Pulse 88 Pulse Source Pulse Oximeter Pulse Oximetry (%) 92 Oxygen Delivery Method Room Air Intake Visit Reasons: copd Intake Note: pt is here for follow up and states he is stating he is so so, and having some issues [facility] Required: No Email Production Consultant: Email Production Consultant offered & declined Allergies No Known Allergies Allergy (Verified 04/11/25 13:42) Medication List - Last Reconciled 04/11/25 by Mckinley Cooley MD buspirone 10 mg PO BID clonidine HCl 0.1 mg PO BEDTIME enalapril maleate 10 mg PO DAILY fluticasone propionate 50 mcg/actuation 1 spray intranasal DAILY meloxicam 15 mg PO DAILY montelukast (Singulair) 10 mg PO BEDTIME quetiapine 100 mg PO BEDTIME PRN rosuvastatin 20 mg PO DAILY venlafaxine ER 75 mg PO DAILY venlafaxine ER 150 mg PO DAILY Do you need a note to return to daycare/school/sports/work: No HPI HPI copd: Details: SAL IS HERE FOR 6 MONTHS FOLLOW-UP. 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 FOR THE LAST 6 MONTHS HE WAS DOING WELL BUT ABOUT A MONTH AGO HE DECIDED TO GO OFF THE CPAP. IT DID NOT WORK BECAUSE LAST WEEK, HIS NOTICED HIM HAVING LONG RESPIRATORY PAUSES AND SNORING. SO HE DID GO BACK TO USING THE CPAP EVERY NIGHT FOR THE LAST WEEK. WITHOUT THE CPAP HE WAS ALSO HAVING SOME HARD TIME IN BREATHING AT NIGHT. HE CONTINUES TO HAVE HIS USUAL NASAL CONGESTION WITH POSTNASAL DRIP AND SECONDARY COUGH. BUT THESE SYMPTOMS REMAIN RELATIVELY CONTROLLED LONG HE TAKES/ USES HIS MEDICATIONS. [facility] Medical History (Updated 04/11/25 @ 14:00 by Mckinley Cooley MD) Retrognathia Right shoulder strain Major depression in remission Pain in joint involving multiple sites Bilateral hand swelling Allergic rhinitis SHAHRIAR on CPAP Generalized anxiety disorder Hypercholesterolemia Essential hypertension Osteoarthritis of right hip Coronary artery disease due to lipid rich plaque Surgical History History of colonoscopy (~02/25/19) History of prostate surgery History of repair of rotator cuff History of hemorrhoidectomy Family History Father No problems noted. Mother No problems noted. Sister Anemia Arthritis Sister Arthritis Social History Household Members: Spouse Housing: Apartment Alcohol intake: former Year quit: 20y Patient Tobacco Use Status: Former Tobacco user (30 years ago) Tobacco use type: Cigarette e-Cigarette/Vaping Use: Never Used Second Hand Smoke Exposure: Yes service: No Current occupational status: disabled Cognitive needs: No Hearing needs: No Vision needs: Yes (Glasses) Review of Systems Const All systems reviewed & are unremarkable except as noted in HPI and below Eyes Reports no additional complaints ENT Reports nasal congestion (Only mild once in a while) Card Denies chest pain, Denies irregular heart rhythm, Denies leg edema and Denies dyspnea Resp Denies cough, Denies dyspnea and Denies wheezing GI Reports dyspepsia (Chronic nonspecific) and Reports heartburn Reports no additional complaints Musc Reports myalgias (Chronic due to arthritis) Skin/Breast Reports system reviewed and no additional complaints, except as documented Neuro Reports no additional complaints Psych Reports anxiety (Controlled with medicine) Aller/Immun Denies wheezing Physical Exam Vital Signs: Last Vital Signs Pulse 88 04/11/25 13:33 BP 120/68 04/11/25 13:33 Pulse Ox 92 04/11/25 13:33 Oxygen Delivery Method Room Air 04/11/25 13:33 BMI result Body Mass Index 27.7 Const General: healthy appearing, comfortable, no acute distress, alert and awake Orientation/consciousness: patient oriented x3 HEENT Head: Yes normal to inspection General nose exam: No nasal polyps present, No nasal discharge present and Other nasal findings present (MILD NASAL CONGESTION) Face and sinus: Yes sinuses nontender Mouth: oropharynx normal Teeth and gingiva: other (HE HAS PROMINENT RETROGNATHIA OF THE LOWER JAW) Throat: Yes posterior oropharynx normal Eyes General: appearance normal, both eyes and all related structures Neck Neck: Yes normal visual inspection, Yes no lymphadenopathy, Yes trachea midline and Yes no JVD Thyroid: Thyroid normal Chest Chest palpation & inspection: normal inspection of the chest, normal palpation of entire chest wall and no tenderness Resp Effort & Inspection: normal respiratory effort Auscultation: clear to auscultation bilaterally, no crackles and no wheezes Cardio Palpation: normal PMI Rate: regular rate Rhythm: regular rhythm Heart sounds: no gallops and no murmurs Peripheral pulses: Peripheral pulses 2+ throughout GI Palpation (GI): Soft to palpation, nontender, No hepatosplenomegaly present and no masses Auscultation: normal bowel sounds Back/Spine/Pelvis Thoracic/Lumbar Spine: thoracic and lumbar spine normal to inspection Skin General skin exam: no rashes or lesions noted Neuro General: patient oriented x3 and no focal motor deficits Cranial nerves: Yes CN's II-XII intact bilaterally Extrem General: Yes normal to inspection, Yes no clubbing, cyanosis or edema and Yes no calf tenderness Psych Appearance: grossly normal and well kempt Speech and movement: Normal speech and movement present Results Reviewed Results Reviewed: COMPLIANCE REPORT FOR THE LAST 30 NIGHTS IS REVIEWED. HE HAS USED ONLY 18 NIGHTS, 60%. WITH AVERAGE USE IT PER NIGHT FOR 2 HOURS 50 MINUTES Assessment & Plan Assessment & Plan (1) SHAHRIAR on CPAP: Comment: HE WAS USING HIS CPAP ONLY OFF AND ON. SINCE LAST WEEK HE IS USING IT MORE REGULARLY HIS TOLD HIM THAT HE WAS HAVING RESPIRATORY PAUSES AND MORE SNORING. HIS USAGE IS STILL ONLY 2-3 HOURS PER NIGHT. Code(s): G47.33 - Obstructive sleep apnea (adult) (pediatric); Z99.89 - Dependence on other enabling machines and devices Category: Medical Plan: DISCUSSED WITH HIM ABOUT THE NEED TO USE CPAP REGULARLY. HE SHOULD USE THE CPAP FOR AT LEAST 4 HOURS EVERY NIGHT AND TRY TO USE IT EVERY NIGHT. (2) Allergic rhinitis: Comment: HE HAS MILD CHRONIC ALLERGIC RHINITIS. WELL CONTROLLED WITH PRESENT MEDICAL REGIMEN. Code(s): J30.9 - Allergic rhinitis, unspecified Category: Medical Plan: CONTINUE TO USE FLONASE NASAL SPRAY 1 SPRAY IN EACH NOSTRIL DAILY. CONTINUE MONTELUKAST 1 TABLET DAILY AND USE CLARITIN 10 MG ONCE A DAY PRN. 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 Code(s): M26.19 - Other specified anomalies of jaw-cranial base relationship Category: Medical Plan: EXPLAINED TO HIM THAT BECAUSE OF THIS ANATOMICAL ABNORMALITY , HE IS GOING TO HAVE SHAHRIAR PERMANENTLY, AND WOULD NEED TO KEEP ON USING THE CPAP EVERY NIGHT PERMANENTLY. Coding Level of Care Code Est Pt Level 3 (89684) Diagnoses SHAHRIAR on CPAP G47.33; Z99.89 Allergic rhinitis J30.9 Retrognathia M26.19
== END 2025-04-11 13:53 | disposition home or self-care (01) ==
LOC: HO.HPS 13:29
PROVIDERS: PCP Internal Medicine; Visit Provider Internal Medicine
DX: G47.33 Obstructive sleep apnea (adult) (pediatric) (principal); Z99.89 Dependence on other enabling machines and devices; J30.9 Allergic rhinitis, unspecified; M26.19 Other specified anomalies of jaw-cranial base relationship
CPT/HCPCS: 99213

== ENCOUNTER → 2025-04-11 13:28 | Outpatient (BNVA) | payer OTHER, SELFPAY | PROVIDERS: PCP Internal Medicine; Visit Provider Internal Medicine | DX: G47.33 Obstructive sleep apnea (adult) (pediatric) (principal); J30.9 Allergic rhinitis, unspecified; M26.19 Other specified anomalies of jaw-cranial base relationship; Z99.89 Dependence on other enabling machines and devices; Z87.891 Personal history of nicotine dependence | CPT/HCPCS: 99212 ==

== ENCOUNTER 2025-04-20 08:36 | Outpatient (AMB) | payer OTHER, SELFPAY ==
[2025-04-20 08:46] VITALS: BMI 27.5
--- NOTE | 2025-04-20 08:46 | MHC.OFFVIS ---
Vital Signs 04/20/25 08:46 Height 5 ft 8 in Weight 181 lb BMI 27.5 Intake Visit Reasons: Right shoulder pain and weakness Intake Note: Fletcher is a 65 year old male who presents with complaints of progressively worsening right shoulder pain and weakness. The patient states that he has undergone 2 right shoulder surgeries as well as 2 left shoulder surgeries in the past. His symptoms have gotten worse over the last year in spite of continued non operative treatments. Has failed the last 6 weeks of conservative treatment which has included physical therapy, Tylenol and meloxicam. The patient reports difficulty lifting his right hand above shoulder height. At this point the patient's right shoulder pain and weakness or interfering with his activities of daily living and his ability to sleep well through the night. Allergies No Known Allergies Allergy (Verified 04/20/25 08:47) Medication List - Last Reconciled 04/20/25 by Antonio Mancuso MD buspirone 10 mg PO BID clonidine HCl 0.1 mg PO BEDTIME enalapril maleate 10 mg PO DAILY fluticasone propionate 50 mcg/actuation 1 spray intranasal DAILY meloxicam 15 mg PO DAILY montelukast (Singulair) 10 mg PO BEDTIME quetiapine 100 mg PO BEDTIME PRN rosuvastatin 20 mg PO DAILY venlafaxine ER 75 mg PO DAILY venlafaxine ER 150 mg PO DAILY FORMERLY [facility] Medical History Retrognathia Right shoulder strain Major depression in remission Pain in joint involving multiple sites Bilateral hand swelling Allergic rhinitis SHAHRIAR on CPAP Generalized anxiety disorder Hypercholesterolemia Essential hypertension Osteoarthritis of right hip Coronary artery disease due to lipid rich plaque Surgical History History of colonoscopy (~02/25/19) History of prostate surgery History of repair of rotator cuff History of hemorrhoidectomy Family History Father No problems noted. Mother No problems noted. Sister Anemia Arthritis Sister Arthritis Social History Household Members: Spouse Housing: Apartment Alcohol intake: former Year quit: 20y Patient Tobacco Use Status: Former Tobacco user (30 years ago) Tobacco use type: Cigarette e-Cigarette/Vaping Use: Never Used Second Hand Smoke Exposure: Yes service: No Current occupational status: disabled Cognitive needs: No Hearing needs: No Vision needs: Yes (Glasses) Physical Exam Vital Signs: BMI result Body Mass Index 27.5 Extrem Other: Right shoulder examination shows decreased range of motion when compared to his left shoulder, 4/5 strength with supraspinatus testing, positive impingement signs, tenderness over his acromioclavicular joint, no instability Results Reviewed Results Reviewed: X-rays of the patient's right shoulder show severe acromioclavicular joint narrowing, a type 2 acromion, no acute bony abnormalities Assessment & Plan Assessment & Plan (1) Rotator cuff insufficiency of right shoulder: Code(s): M25.311 - Other instability, right shoulder Category: Medical Plan Mr. Rivera presents with right shoulder pain and weakness due to impingement syndrome and possible rotator cuff tearing. Thus, I will send the patient for an MRI of his right shoulder for further evaluation. I will see him back once the MRI is completed to discuss the findings and treatment options. Feel free to call me at any time should any questions regarding his orthopedic management arise. Thank you very much for asking me to see this very friendly gentleman. I spent 20 minutes in reviewing the patient's records and imaging studies, seeing the patient and documenting in the medical record. Orders: Orders MR shoulder RT wo con 04/21/25 M25.311 - Other instability, right shoulder Coding Level of Care Code New Pt Level 3 (27327) Add On Problem Visit Only Diagnoses Rotator cuff insufficiency of right shoulder M25.311
== END 2025-04-20 09:03 | disposition home or self-care (01) ==
LOC: HO.HOS 08:37
PROVIDERS: PCP Internal Medicine; Visit Provider Orthopaedic Surgery
DX: M25.311 Other instability, right shoulder (principal)
CPT/HCPCS: 99203; G2211

== ENCOUNTER → 2025-04-20 08:36 | Outpatient (BNVA) | payer OTHER, SELFPAY | PROVIDERS: PCP Internal Medicine; Visit Provider Orthopaedic Surgery | DX: M25.311 Other instability, right shoulder (principal) | CPT/HCPCS: 99202 ==